=== PATIENT | male | born 1950 | race Caucasian/White ===

== ENCOUNTER 2017-12-21 14:04 | Inpatient (IN) | payer MEDICARE, MEDICAID ==
[~2017-12-21] VITALS: Ht 180.3 cm; Wt 146.0 kg
[~2017-12-21 14:04] MED LIST: ALBU18HF2 INH; CYCL-1 PO; DABI150C PO; DILT180C66 PO; DILT180C87 PO; FLUT12AE5 INH; LEVO500T89 PO; LIDO700A47 TP; METO50TA16 PO; OMEP20CA10 PO; PRED20TA PO; ROFL500T7 PO; TRAZ150T78 PO; UMEC62.5 INH
[2017-12-21] MEDS ORDERED: aspirin 81mg tab.chew PO ONE (14:10)
[2017-12-21] MEDS ORDERED: ipratropium/albuterol 3ml nebule NEB ONE (14:15)
[2017-12-21] MEDS ORDERED: furosemide 10 MG/1 ML 10ml inj IV ONE (14:15)
[2017-12-21] MEDS ORDERED: methylPREDNISolone sod succ 125mg/2ml vial IV ONE (14:15)
[2017-12-21] MEDS ORDERED: furosemide 40mg/4ml inj IV ONE (14:20)
[2017-12-21 14:34] LABS: HEMATOCRIT 32.5 % (42.0-52.0); HEMOGLOBIN 10.5 g/dl (14.0-17.9); MEAN CORPUSCULAR HEMOGLOBIN 25.1 PG (27.0-31.0); MEAN CORPUSCULAR HGB CONC 32.4 % (33.0-36.5); MEAN CORPUSCULAR VOLUME 77.5 FL (78-98); PLATELET COUNT 294 X10'3 (140-440); RED CELL DISTRIBUTION WIDTH 17.1 % (11.5-14.5); WHITE BLOOD COUNT 11.3 X10'3 (4.5-11.0)
[2017-12-21 14:35] LABS: BASOPHILS # (AUTO) 0.1 X10'3 (0-0.2); BASOPHILS % (AUTO) 1 % (0-1); EOSINOPHILS # (AUTO) 0.2 X10'3 (0-0.9); EOSINOPHILS % (AUTO) 1.5 % (0-6); LYMPHOCYTES # (AUTO) 2.2 X10'3 (1.1-4.8); LYMPHOCYTES % (AUTO) 19.4 % (21-51); MONOCYTES # (AUTO) 0.9 X10'3 (0-0.9); MONOCYTES % (AUTO) 7.6 % (2-12); NEUTROPHILS # (AUTO) 7.9 X10'3 (1.8-7.7); NEUTROPHILS % (AUTO) 70.5 % (42-75); PARTIAL THROMBOPLASTIN TIME 35 SECONDS (22-32); PROTHROMBIN TIME 10.7 SECONDS (9.0-12.0)
[2017-12-21 14:45] LABS: ALANINE AMINOTRANSFERASE 33 U/L (12-78); ALBUMIN 3.3 G/DL (3.4-5.0); ALBUMIN/GLOBULIN RATIO 0.9 (1.1-1.5); ALKALINE PHOSPHATASE 66 IU/L (46-116); ANION GAP 13 (8-16); ASPARTATE AMINO TRANSFERASE 26 U/L (10-37); BILIRUBIN,TOTAL 0.4 MG/DL (0.1-1.0); BLOOD UREA NITROGEN 12 MG/DL (7-18); BUN/CREATININE RATIO 11.9 (5.4-32.0); CALCIUM 9.3 MG/DL (8.5-10.1); CHLORIDE 91 MMOL/L (99-107); CREATININE 1.01 MG/DL (0.60-1.10); GLUCOSE 81 MG/DL (70-104); MAGNESIUM 1.6 MG/DL (1.5-2.4); SODIUM 130 MMOL/L (135-145); TOTAL CARBON DIOXIDE 25.8 MMOL/L (24-32); TOTAL PROTEIN 6.8 G/DL (6.4-8.2); eGFR 74 ML/MIN
[2017-12-21] MEDS ORDERED: potassium Cl 20 mEq SR tablet PO STA (14:48)
[2017-12-21] MEDS ORDERED: levoFLOXACIN-Levaquin 750MG/D5 150 ML IV STA (15:00)
[2017-12-21] MEDS ORDERED: acetaminophen 325mg tablet PO PRN (15:20)
[2017-12-21] MEDS ORDERED: potassium Cl 40MEQ/NS 500ml 500 ML IV PRN ×2 (15:20)
[2017-12-21] MEDS ORDERED: bisacodyl 10mg suppository rectal RC PRN (15:20)
[2017-12-21] MEDS ORDERED: ondansetron/PF 4mg/2ml inj IV PRN (15:20)
[2017-12-21] MEDS ORDERED: potassium Cl 20 mEq SR tablet PO PRN ×2 (15:20)
[2017-12-21] MEDS ORDERED: magnesium Cl slow-release 64mg tablet PO PRN (15:20)
[2017-12-21] MEDS ORDERED: magnesium 4gm in 100ml NS 100 ML IV PRN (15:20)
[2017-12-21] MEDS ORDERED: mag hydrox/Alum hydrox/simeth 30ml oral suspension PO PRN (15:20)
[2017-12-21] MEDS ORDERED: magnesium hydroxide 30ml (MOM) UD suspension PO PRN (15:20)
[2017-12-21] MEDS ORDERED: magnesium 1gm/100ml D5W IVPB 100 ML IV PRN (15:20)
[2017-12-21] MEDS: furosemide 20 MG/2 ML vial IV SCH ×2 (16:03→19:10)
[2017-12-21] MEDS: CefTRIAXone/D5W-Rocephin 1gm 50 ML IV SCH (16:04)
[2017-12-21 16:53] VITALS: BP 156/99
[2017-12-21] MEDS ORDERED: POTA8TAB8 PO (17:03)
[2017-12-21] MEDS ORDERED: HYDR-4383 PO (17:03)
[2017-12-21] MEDS ORDERED: DABI150C PO (17:03)
[2017-12-21] MEDS ORDERED: FURO-149 PO (17:03)
[2017-12-21] MEDS ORDERED: PRED10TA23 PO (17:03)
[2017-12-21] MEDS ORDERED: FURO40TA4 PO (17:03)
[2017-12-21] MEDS ORDERED: ROFL500T7 PO (17:03)
[2017-12-21] MEDS ORDERED: HYDR25TA4 PO (17:03)
[2017-12-21] MEDS ORDERED: METO50TA17 PO (17:03)
[2017-12-21] MEDS ORDERED: LEVA15HF4 INH (17:03)
[2017-12-21] MEDS ORDERED: pneumococcal 23-VAL P-sac vacc 25 mcg/0.5ml vial IMVAC ONE (17:30)
[2017-12-21] MEDS: potassium Cl 20 mEq SR tablet PO SCH (17:44)
[2017-12-21] MEDS ORDERED: UMEC62.5 INH (17:57)
[2017-12-21] MEDS ORDERED: TRAM50TA2 PO (17:57)
[2017-12-21] MEDS ORDERED: TRAZ150T78 PO (17:57)
[2017-12-21] MEDS ORDERED: IBUP-1985 PO (17:57)
[2017-12-21 18:30] VITALS: BP 162/72
[2017-12-21] MEDS ORDERED: albuterol 2.5 MG/3 ML nebule NEB PRN (18:30)
[2017-12-21] MEDS: ipratropium/albuterol 3ml nebule NEB SCH ×2 (18:36→22:54)
[2017-12-21] MEDS: LORazepam 0.5 MG tablet PO PRN (18:38)
[2017-12-21] MEDS: HYDROcodone/acetaminophen 5mg/325mg tablet PO PRN ×2 (18:39→22:18)
[2017-12-21] MEDS: methylPREDNISolone sod succ 125mg/2ml vial IV SCH (19:09)
[2017-12-21] MEDS: dabigatran 150mg capsule PO SCH (19:09)
[2017-12-21] MEDS: metoprolol tartrate 50mg tablet PO SCH (19:10)
[2017-12-21] MEDS: docusate sod 100mg capsule PO SCH (19:11)
[2017-12-21 20:00] VITALS: BP 162/72
[2017-12-21] MEDS ORDERED: dabigatran 150mg capsule PO SCH (20:00)
[2017-12-21] MEDS: traZODone 150mg tablet PO SCH (21:28)
[2017-12-21] MEDS: guaiFENesin 200 MG/10 ML oral syrup UD cup PO PRN (21:31)
[2017-12-22] VITALS: BP 135/86
[2017-12-22] MEDS: LORazepam 0.5 MG tablet PO PRN ×4 (00:59→21:57)
[2017-12-22] MEDS: methylPREDNISolone sod succ 125mg/2ml vial IV SCH ×4 (01:34→19:20)
[2017-12-22] MEDS: ipratropium/albuterol 3ml nebule NEB SCH ×6 (03:33→23:00)
[2017-12-22] MEDS: HYDROcodone/acetaminophen 5mg/325mg tablet PO PRN ×3 (04:10→17:06)
[2017-12-22 06:53] LABS: BASOPHILS % (AUTO) 0 % (0-1); EOSINOPHILS # (AUTO) 0.1 X10'3 (0-0.9); EOSINOPHILS % (AUTO) 1.9 % (0-6); HEMATOCRIT 32.9 % (42.0-52.0); HEMOGLOBIN 10.3 g/dl (14.0-17.9); LYMPHOCYTES # (AUTO) 0.3 X10'3 (1.1-4.8); MEAN CORPUSCULAR HEMOGLOBIN 24.5 PG (27.0-31.0); MEAN CORPUSCULAR HGB CONC 31.3 % (33.0-36.5); MEAN CORPUSCULAR VOLUME 78.4 FL (78-98); MEAN PLATELET VOLUME 7.1 FL (7.4-10.4); MONOCYTES # (AUTO) 0.1 X10'3 (0-0.9); MONOCYTES % (AUTO) 1.1 % (2-12); NEUTROPHILS # (AUTO) 6.8 X10'3 (1.8-7.7); PLATELET COUNT 320 X10'3 (140-440); RED BLOOD COUNT 4.19 X10'6 (4.70-6.10); RED CELL DISTRIBUTION WIDTH 17.9 % (11.5-14.5); WHITE BLOOD COUNT 7.3 X10'3 (4.5-11.0)
[2017-12-22 07:03] LABS: ALBUMIN 3.3 G/DL (3.4-5.0); ANION GAP 11 (8-16); BLOOD UREA NITROGEN 20 MG/DL (7-18); BUN/CREATININE RATIO 14.8 (5.4-32.0); CALCIUM 8.8 MG/DL (8.5-10.1); CHLORIDE 91 MMOL/L (99-107); CREATININE 1.35 MG/DL (0.60-1.10); GLUCOSE 184 MG/DL (70-104); MAGNESIUM 1.7 MG/DL (1.5-2.4); POTASSIUM 3.5 MMOL/L (3.5-5.1); SODIUM 132 MMOL/L (135-145); TOTAL CARBON DIOXIDE 30.1 MMOL/L (24-32); eGFR 53 ML/MIN
[2017-12-22 08:00] VITALS: BP 158/99
[2017-12-22] MEDS: K and/or MAG REPLACEMENT MC SCH (08:00)
[2017-12-22] MEDS: docusate sod 100mg capsule PO SCH ×2 (08:00→19:19)
[2017-12-22] MEDS: pantoprazole 40mg Tablet.DR PO SCH (08:32)
[2017-12-22] MEDS: potassium Cl 20 mEq SR tablet PO SCH ×2 (08:32→17:05)
[2017-12-22] MEDS: metoprolol tartrate 50mg tablet PO SCH ×2 (08:33→19:25)
[2017-12-22] MEDS: dabigatran 150mg capsule PO SCH ×2 (08:34→19:20)
[2017-12-22] MEDS: CefTRIAXone/D5W-Rocephin 1gm 50 ML IV SCH (08:34)
[2017-12-22] MEDS: furosemide 20 MG/2 ML vial IV SCH ×2 (08:34→19:21)
[2017-12-22 11:00] VITALS: BP 140/92
[2017-12-22] MEDS ORDERED: diazepam 5mg tablet PO ONE (12:25)
[2017-12-22] MEDS ORDERED: thiamine inj. 100 MG in normal saline 100ml IV soln 100 ML IV ONE (13:55)
[2017-12-22] MEDS ORDERED: haloperidol lactate 5mg/ml inj IM PRN (13:55)
[2017-12-22] MEDS ORDERED: haloperidol 5mg tablet PO PRN (13:55)
[2017-12-22] MEDS ORDERED: folic acid inj. 2 MG, thiamine inj. 100 MG, MVI, adult No.4 with vit. K 10 ML in dextro... IV SCH ×4 (15:00)
[2017-12-22] MEDS: diltiazem SR 60mg capsule (twice daily) PO SCH ×2 (15:36→19:26)
[2017-12-22] MEDS: guaiFENesin 200 MG/10 ML oral syrup UD cup PO PRN (19:17)
[2017-12-22 19:23] VITALS: BP 139/75
[2017-12-22 20:00] VITALS: BP 120/73
[2017-12-22] MEDS: traZODone 150mg tablet PO SCH (21:54)
[2017-12-23] VITALS: BP 138/76
[2017-12-23] MEDS: methylPREDNISolone sod succ 125mg/2ml vial IV SCH ×4 (01:33→19:37)
[2017-12-23] MEDS: HYDROcodone/acetaminophen 5mg/325mg tablet PO PRN ×3 (01:34→19:33)
[2017-12-23] MEDS: benzonatate 100mg capsule PO PRN ×2 (01:35→09:34)
[2017-12-23] MEDS: LORazepam 2 mg/ml vial IV PRN ×2 (01:36→05:27)
[2017-12-23] MEDS: ipratropium/albuterol 3ml nebule NEB SCH ×6 (03:00→23:05)
[2017-12-23] MEDS: LORazepam 0.5 MG tablet PO PRN ×5 (04:02→23:41)
[2017-12-23 05:21] LABS: BASOPHILS % (AUTO) 0 % (0-1); EOSINOPHILS # (AUTO) 0.2 X10'3 (0-0.9); EOSINOPHILS % (AUTO) 1.1 % (0-6); HEMATOCRIT 34.2 % (42.0-52.0); HEMOGLOBIN 10.8 g/dl (14.0-17.9); LYMPHOCYTES # (AUTO) 0.4 X10'3 (1.1-4.8); LYMPHOCYTES % (AUTO) 2.6 % (21-51); MEAN CORPUSCULAR HEMOGLOBIN 24.5 PG (27.0-31.0); MEAN CORPUSCULAR HGB CONC 31.5 % (33.0-36.5); MEAN CORPUSCULAR VOLUME 77.8 FL (78-98); MEAN PLATELET VOLUME 6.9 FL (7.4-10.4); MONOCYTES # (AUTO) 0.5 X10'3 (0-0.9); MONOCYTES % (AUTO) 3.6 % (2-12); NEUTROPHILS # (AUTO) 12.6 X10'3 (1.8-7.7); NEUTROPHILS % (AUTO) 92.7 % (42-75); PLATELET COUNT 358 X10'3 (140-440); RED CELL DISTRIBUTION WIDTH 18.4 % (11.5-14.5); WHITE BLOOD COUNT 13.6 X10'3 (4.5-11.0)
[2017-12-23 05:26] LABS: INR 1.1 INR; PROTHROMBIN TIME 11.4 SECONDS (9.0-12.0)
[2017-12-23 05:33] LABS: ALBUMIN 3.6 G/DL (3.4-5.0); AMYLASE 41 U/L (25-115); ANION GAP 10 (8-16); BLOOD UREA NITROGEN 33 MG/DL (7-18); BUN/CREATININE RATIO 22.9 (5.4-32.0); CALCIUM 9.8 MG/DL (8.5-10.1); CHLORIDE 95 MMOL/L (99-107); CREATININE 1.44 MG/DL (0.60-1.10); GLUCOSE 144 MG/DL (70-104); LIPASE 97 U/L (73-393); MAGNESIUM 1.9 MG/DL (1.5-2.4); PHOSPHORUS 4.4 MG/DL (2.3-4.5); POTASSIUM 4.4 MMOL/L (3.5-5.1); SODIUM 134 MMOL/L (135-145); eGFR 49 ML/MIN
[2017-12-23 06:09] LABS: ANISOCYTOSIS 2+; MICROCYTOSIS 1+; PLATELET ESTIMATE NORMAL
[2017-12-23 06:10] LABS: POLYCHROMASIA FEW
[2017-12-23 07:02] VITALS: BP 118/87
[2017-12-23] MEDS: K and/or MAG REPLACEMENT MC SCH (08:00)
[2017-12-23] MEDS: metoprolol tartrate 50mg tablet PO SCH ×2 (09:12→19:31)
[2017-12-23] MEDS: multivitamins, therapeutics tablet PO SCH (09:12)
[2017-12-23] MEDS: thiamine 100mg tablet PO SCH (09:12)
[2017-12-23] MEDS: potassium Cl 20 mEq SR tablet PO SCH ×2 (09:12→19:31)
[2017-12-23] MEDS: pantoprazole 40mg Tablet.DR PO SCH (09:13)
[2017-12-23] MEDS: diltiazem SR 60mg capsule (twice daily) PO SCH ×2 (09:13→20:00)
[2017-12-23] MEDS: docusate sod 100mg capsule PO SCH ×3 (09:13→19:40)
[2017-12-23] MEDS: dabigatran 150mg capsule PO SCH ×2 (09:13→19:31)
[2017-12-23] MEDS: folic acid 1mg tablet PO SCH (09:13)
[2017-12-23] MEDS: CefTRIAXone/D5W-Rocephin 1gm 50 ML IV SCH (09:14)
[2017-12-23 12:03] VITALS: BP 143/98
[2017-12-23] MEDS: guaiFENesin/codeine phos 10ml UD oral syrup PO PRN ×3 (14:40→23:41)
[2017-12-23 18:00] VITALS: BP 154/86
[2017-12-23] MEDS: lactobacillus rhamnosus 10,000 MMU CELLS/CAPSULE PO SCH (19:31)
[2017-12-23] MEDS: traZODone 150mg tablet PO SCH (21:21)
[2017-12-23 23:00] VITALS: BP 161/104
[2017-12-23] MEDS: diltiazem 30mg tablet PO SCH (23:28)
[2017-12-24] MEDS: HYDROcodone/acetaminophen 5mg/325mg tablet PO PRN ×4 (01:40→22:20)
[2017-12-24] MEDS: methylPREDNISolone sod succ 125mg/2ml vial IV SCH ×3 (01:40→19:21)
[2017-12-24] MEDS ORDERED: diltiazem 30mg tablet PO SCH (02:00)
[2017-12-24] MEDS: LORazepam 2 mg/ml vial IV PRN (02:50)
[2017-12-24] MEDS: ipratropium/albuterol 3ml nebule NEB SCH ×6 (03:18→23:05)
[2017-12-24 03:24] LABS: INR 1.1 INR; PROTHROMBIN TIME 11.3 SECONDS (9.0-12.0)
[2017-12-24 03:29] LABS: ALBUMIN 3.6 G/DL (3.4-5.0); AMYLASE 43 U/L (25-115); ANION GAP 8 (8-16); BLOOD UREA NITROGEN 44 MG/DL (7-18); BUN/CREATININE RATIO 28.6 (5.4-32.0); CALCIUM 9.5 MG/DL (8.5-10.1); CHLORIDE 98 MMOL/L (99-107); CREATININE 1.54 MG/DL (0.60-1.10); GLUCOSE 146 MG/DL (70-104); LIPASE 119 U/L (73-393); MAGNESIUM 2.1 MG/DL (1.5-2.4); PHOSPHORUS 4.4 MG/DL (2.3-4.5); POTASSIUM 5.3 MMOL/L (3.5-5.1); SODIUM 135 MMOL/L (135-145); TOTAL CARBON DIOXIDE 29.5 MMOL/L (24-32); eGFR 45 ML/MIN
[2017-12-24 03:44] LABS: LYMPHOCYTES % (AUTO) 2.4 % (21-51); MONOCYTES % (AUTO) 4.3 % (2-12); NEUTROPHILS # (AUTO) 11.3 X10'3 (1.8-7.7)
[2017-12-24 03:45] LABS: BASOPHILS % (AUTO) 0.1 % (0-1); EOSINOPHILS % (AUTO) 0 % (0-6); HEMATOCRIT 32.7 % (42.0-52.0); HEMOGLOBIN 10.3 g/dl (14.0-17.9); LYMPHOCYTES # (AUTO) 0.3 X10'3 (1.1-4.8); MEAN CORPUSCULAR HEMOGLOBIN 24.7 PG (27.0-31.0); MEAN CORPUSCULAR HGB CONC 31.5 % (33.0-36.5); MEAN CORPUSCULAR VOLUME 78.4 FL (78-98); MEAN PLATELET VOLUME 7.4 FL (7.4-10.4); NEUTROPHILS % (AUTO) 93.2 % (42-75); PLATELET COUNT 325 X10'3 (140-440); RED BLOOD COUNT 4.17 X10'6 (4.70-6.10); RED CELL DISTRIBUTION WIDTH 17.6 % (11.5-14.5); WHITE BLOOD COUNT 12.1 X10'3 (4.5-11.0)
[2017-12-24 03:46] LABS: MONOCYTES # (AUTO) 0.5 X10'3 (0-0.9)
[2017-12-24] MEDS: LORazepam 0.5 MG tablet PO PRN ×2 (05:15→09:11)
[2017-12-24] MEDS: guaiFENesin/codeine phos 10ml UD oral syrup PO PRN ×4 (05:15→17:49)
[2017-12-24] MEDS: folic acid 1mg tablet PO SCH (07:27)
[2017-12-24] MEDS: CefTRIAXone/D5W-Rocephin 1gm 50 ML IV SCH (07:27)
[2017-12-24] MEDS: multivitamins, therapeutics tablet PO SCH (07:27)
[2017-12-24] MEDS: pantoprazole 40mg Tablet.DR PO SCH (07:27)
[2017-12-24] MEDS: dabigatran 150mg capsule PO SCH ×2 (07:28→19:25)
[2017-12-24] MEDS: lactobacillus rhamnosus 10,000 MMU CELLS/CAPSULE PO SCH ×2 (07:28→19:24)
[2017-12-24] MEDS: thiamine 100mg tablet PO SCH (07:28)
[2017-12-24] MEDS: metoprolol tartrate 50mg tablet PO SCH ×2 (07:28→19:24)
[2017-12-24] MEDS: diltiazem 30mg tablet PO SCH ×3 (07:28→19:24)
[2017-12-24] MEDS: docusate sod 100mg capsule PO SCH ×2 (07:29→19:24)
[2017-12-24] MEDS: K and/or MAG REPLACEMENT MC SCH (07:29)
[2017-12-24 07:30] VITALS: BP 175/104
[2017-12-24] MEDS: furosemide 20 MG/2 ML vial IV SCH (07:33)
[2017-12-24] MEDS: potassium Cl 20 mEq SR tablet PO SCH ×2 (08:30→16:37)
[2017-12-24 11:35] VITALS: BP 161/87
[2017-12-24] MEDS: LORazepam 1 MG tablet PO PRN ×4 (13:27→23:11)
[2017-12-24] MEDS ORDERED: LORazepam 2 mg/ml vial IV PRN (13:55)
[2017-12-24] MEDS: benzonatate 100mg capsule PO SCH (16:59)
[2017-12-24 18:00] VITALS: BP 149/95
[2017-12-24] MEDS: doxycycline inj 100 MG in normal saline 100ml IV soln 100 ML IV SCH (19:22)
[2017-12-24] MEDS: traZODone 150mg tablet PO SCH (21:27)
[2017-12-25] VITALS: BP 165/107
[2017-12-25] MEDS: benzonatate 100mg capsule PO SCH ×3 (00:09→15:17)
[2017-12-25] MEDS: LORazepam 1 MG tablet PO PRN ×4 (02:00→22:58)
[2017-12-25] MEDS: diltiazem 30mg tablet PO SCH ×4 (02:00→20:46)
[2017-12-25] MEDS: ipratropium/albuterol 3ml nebule NEB SCH ×6 (02:39→22:47)
[2017-12-25 05:41] LABS: BASOPHILS % (AUTO) 0 % (0-1); EOSINOPHILS % (AUTO) 0 % (0-6); HEMATOCRIT 32.6 % (42.0-52.0); HEMOGLOBIN 10.6 g/dl (14.0-17.9); LYMPHOCYTES # (AUTO) 0.3 X10'3 (1.1-4.8); LYMPHOCYTES % (AUTO) 2.5 % (21-51); MEAN CORPUSCULAR HEMOGLOBIN 25.4 PG (27.0-31.0); MEAN CORPUSCULAR HGB CONC 32.6 % (33.0-36.5); MEAN CORPUSCULAR VOLUME 77.8 FL (78-98); MEAN PLATELET VOLUME 7.3 FL (7.4-10.4); MONOCYTES # (AUTO) 0.5 X10'3 (0-0.9); MONOCYTES % (AUTO) 4.6 % (2-12); NEUTROPHILS % (AUTO) 92.9 % (42-75); PLATELET COUNT 304 X10'3 (140-440); RED BLOOD COUNT 4.19 X10'6 (4.70-6.10); RED CELL DISTRIBUTION WIDTH 17.2 % (11.5-14.5); WHITE BLOOD COUNT 10.8 X10'3 (4.5-11.0)
[2017-12-25 05:45] LABS: INR 1.1 INR; PROTHROMBIN TIME 11.6 SECONDS (9.0-12.0)
[2017-12-25 05:55] LABS: ALBUMIN 3.6 G/DL (3.4-5.0); AMYLASE 43 U/L (25-115); ANION GAP 4 (8-16); BLOOD UREA NITROGEN 53 MG/DL (7-18); BUN/CREATININE RATIO 35.3 (5.4-32.0); CALCIUM 9.8 MG/DL (8.5-10.1); CHLORIDE 100 MMOL/L (99-107); GLUCOSE 133 MG/DL (70-104); LIPASE 105 U/L (73-393); MAGNESIUM 2.3 MG/DL (1.5-2.4); PHOSPHORUS 4.3 MG/DL (2.3-4.5); POTASSIUM 5.6 MMOL/L (3.5-5.1); SODIUM 137 MMOL/L (135-145); TOTAL CARBON DIOXIDE 33.3 MMOL/L (24-32); eGFR 47 ML/MIN
[2017-12-25] MEDS: metoprolol tartrate 50mg tablet PO SCH ×2 (07:29→20:47)
[2017-12-25] MEDS: dabigatran 150mg capsule PO SCH ×2 (07:29→20:47)
[2017-12-25] MEDS: lactobacillus rhamnosus 10,000 MMU CELLS/CAPSULE PO SCH ×2 (07:29→20:46)
[2017-12-25] MEDS: pantoprazole 40mg Tablet.DR PO SCH (07:29)
[2017-12-25] MEDS: multivitamins, therapeutics tablet PO SCH (07:29)
[2017-12-25] MEDS: folic acid 1mg tablet PO SCH (07:29)
[2017-12-25] MEDS: thiamine 100mg tablet PO SCH (07:29)
[2017-12-25] MEDS: furosemide 20 MG/2 ML vial IV SCH (07:31)
[2017-12-25] MEDS: methylPREDNISolone sod succ 125mg/2ml vial IV SCH ×2 (07:36→20:38)
[2017-12-25] MEDS: potassium Cl 20 mEq SR tablet PO SCH (07:42)
[2017-12-25] MEDS: docusate sod 100mg capsule PO SCH ×2 (07:42→20:46)
[2017-12-25] MEDS: K and/or MAG REPLACEMENT MC SCH (07:42)
[2017-12-25] MEDS ORDERED: sodium polystyrene sulfonate 15gm/60ml oral suspension PO ONE (07:45)
[2017-12-25 08:00] VITALS: BP 165/100
[2017-12-25] MEDS: doxycycline inj 100 MG in normal saline 100ml IV soln 100 ML IV SCH ×2 (08:56→20:38)
[2017-12-25] MEDS: HYDROcodone/acetaminophen 5mg/325mg tablet PO PRN ×3 (08:57→21:32)
[2017-12-25 11:30] VITALS: BP 150/104
[2017-12-25 14:12] LABS: ALBUMIN 3.8 G/DL (3.4-5.0); ANION GAP 7 (8-16); BLOOD UREA NITROGEN 55 MG/DL (7-18); BUN/CREATININE RATIO 29.4 (5.4-32.0); CALCIUM 9.9 MG/DL (8.5-10.1); CHLORIDE 100 MMOL/L (99-107); CREATININE 1.87 MG/DL (0.60-1.10); GLUCOSE 154 MG/DL (70-104); POTASSIUM 4.9 MMOL/L (3.5-5.1); SODIUM 139 MMOL/L (135-145); TOTAL CARBON DIOXIDE 31.8 MMOL/L (24-32); eGFR 36 ML/MIN
[2017-12-25] MEDS: guaiFENesin/codeine phos 10ml UD oral syrup PO PRN ×2 (15:18→21:28)
[2017-12-25] MEDS: montelukast 10mg tablet PO SCH (15:18)
[2017-12-25 18:00] VITALS: BP 156/111
[2017-12-25] MEDS: guaiFENesin ER 600mg tablet PO SCH (20:47)
[2017-12-25] MEDS: traZODone 150mg tablet PO SCH (20:47)
[2017-12-26] VITALS: BP 159/100
[2017-12-26] MEDS: benzonatate 100mg capsule PO SCH ×3 (00:42→16:38)
[2017-12-26] MEDS: diltiazem 30mg tablet PO SCH ×4 (01:57→19:12)
[2017-12-26] MEDS: guaiFENesin/codeine phos 10ml UD oral syrup PO PRN ×3 (01:57→21:29)
[2017-12-26] MEDS: ipratropium/albuterol 3ml nebule NEB SCH ×6 (03:49→23:29)
[2017-12-26 04:36] LABS: INR 1.2 INR
[2017-12-26 04:40] LABS: ALBUMIN 3.7 G/DL (3.4-5.0); AMYLASE 45 U/L (25-115); ANION GAP 4 (8-16); BASOPHILS % (AUTO) 0.2 % (0-1); BLOOD UREA NITROGEN 58 MG/DL (7-18); BUN/CREATININE RATIO 38.2 (5.4-32.0); CALCIUM 9.6 MG/DL (8.5-10.1); CHLORIDE 101 MMOL/L (99-107); CREATININE 1.52 MG/DL (0.60-1.10); EOSINOPHILS % (AUTO) 0 % (0-6); GLUCOSE 136 MG/DL (70-104); HEMATOCRIT 33.4 % (42.0-52.0); HEMOGLOBIN 10.8 g/dl (14.0-17.9); LIPASE 91 U/L (73-393); LYMPHOCYTES # (AUTO) 0.3 X10'3 (1.1-4.8); LYMPHOCYTES % (AUTO) 3.2 % (21-51); MAGNESIUM 2.3 MG/DL (1.5-2.4); MEAN CORPUSCULAR HEMOGLOBIN 25.4 PG (27.0-31.0); MEAN CORPUSCULAR HGB CONC 32.4 % (33.0-36.5); MEAN CORPUSCULAR VOLUME 78.3 FL (78-98); MEAN PLATELET VOLUME 7.5 FL (7.4-10.4); MONOCYTES # (AUTO) 0.5 X10'3 (0-0.9); MONOCYTES % (AUTO) 5.3 % (2-12); NEUTROPHILS # (AUTO) 8.6 X10'3 (1.8-7.7); NEUTROPHILS % (AUTO) 91.3 % (42-75); PHOSPHORUS 4.3 MG/DL (2.3-4.5); PLATELET COUNT 292 X10'3 (140-440); RED BLOOD COUNT 4.26 X10'6 (4.70-6.10); RED CELL DISTRIBUTION WIDTH 17.9 % (11.5-14.5); SODIUM 139 MMOL/L (135-145); TOTAL CARBON DIOXIDE 33.9 MMOL/L (24-32); WHITE BLOOD COUNT 9.4 X10'3 (4.5-11.0); eGFR 46 ML/MIN
[2017-12-26] MEDS: HYDROcodone/acetaminophen 5mg/325mg tablet PO PRN ×3 (04:51→21:42)
[2017-12-26 07:00] VITALS: BP 195/121
[2017-12-26] MEDS: pantoprazole 40mg Tablet.DR PO SCH (07:05)
[2017-12-26] MEDS: multivitamins, therapeutics tablet PO SCH (07:06)
[2017-12-26] MEDS: thiamine 100mg tablet PO SCH (07:07)
[2017-12-26] MEDS: montelukast 10mg tablet PO SCH (07:08)
[2017-12-26] MEDS: lactobacillus rhamnosus 10,000 MMU CELLS/CAPSULE PO SCH ×2 (07:08→19:12)
[2017-12-26] MEDS: metoprolol tartrate 50mg tablet PO SCH ×2 (07:08→19:12)
[2017-12-26] MEDS: methylPREDNISolone sod succ 125mg/2ml vial IV SCH ×2 (07:10→19:14)
[2017-12-26] MEDS: dabigatran 150mg capsule PO SCH ×2 (07:11→19:12)
[2017-12-26] MEDS: folic acid 1mg tablet PO SCH (07:14)
[2017-12-26] MEDS: furosemide 20 MG/2 ML vial IV SCH ×2 (07:14→19:15)
[2017-12-26] MEDS: guaiFENesin ER 600mg tablet PO SCH ×2 (07:14→19:12)
[2017-12-26] MEDS: docusate sod 100mg capsule PO SCH ×2 (07:17→20:00)
[2017-12-26] MEDS: LORazepam 1 MG tablet PO PRN (07:30)
[2017-12-26] MEDS: loratadine 10mg tablet PO SCH (07:30)
[2017-12-26] MEDS: doxycycline inj 100 MG in normal saline 100ml IV soln 100 ML IV SCH (07:34)
[2017-12-26] MEDS: K and/or MAG REPLACEMENT MC SCH (08:00)
[2017-12-26] MEDS ORDERED: furosemide 20 MG/2 ML vial IV ONE (08:55)
[2017-12-26 11:00] VITALS: BP 160/98
[2017-12-26] MEDS: DOXYCYCLINE 100MG CAPSULE PO SCH (16:39)
[2017-12-26] MEDS: hydrALAZINE 20mg/ml inj. IV PRN (16:39)
[2017-12-26 18:01] VITALS: BP 145/97
[2017-12-26 19:00] VITALS: BP 154/113
[2017-12-26] MEDS: traZODone 150mg tablet PO SCH (20:16)
[2017-12-26] MEDS: LORazepam 0.5 MG tablet PO PRN (20:19)
[2017-12-26 21:43] VITALS: BP 164/104
[2017-12-27] VITALS (7 sets, daily range): BP systolic 142–174; BP diastolic 81–166
[2017-12-27] MEDS: benzonatate 100mg capsule PO SCH ×4 (00:10→23:46)
[2017-12-27] MEDS: LORazepam 0.5 MG tablet PO PRN ×4 (00:32→23:46)
[2017-12-27] MEDS: diltiazem 30mg tablet PO SCH ×4 (02:21→19:38)
[2017-12-27 02:24] LABS: INR 1.2 INR; PROTHROMBIN TIME 12.5 SECONDS (9.0-12.0)
[2017-12-27 02:27] LABS: MAGNESIUM 2.1 MG/DL (1.5-2.4); PHOSPHORUS 5.3 MG/DL (2.3-4.5)
[2017-12-27] MEDS: ipratropium/albuterol 3ml nebule NEB SCH ×6 (03:17→22:46)
[2017-12-27] MEDS: pantoprazole 40mg Tablet.DR PO SCH (07:26)
[2017-12-27] MEDS: methylPREDNISolone sod succ 125mg/2ml vial IV SCH ×2 (07:26→19:38)
[2017-12-27] MEDS: hydrALAZINE 20mg/ml inj. IV PRN (07:26)
[2017-12-27] MEDS: thiamine 100mg tablet PO SCH (07:26)
[2017-12-27] MEDS: furosemide 20 MG/2 ML vial IV SCH ×2 (07:26→19:39)
[2017-12-27] MEDS: docusate sod 100mg capsule PO SCH ×2 (07:27→19:37)
[2017-12-27] MEDS: metoprolol tartrate 50mg tablet PO SCH ×2 (07:27→19:38)
[2017-12-27] MEDS: loratadine 10mg tablet PO SCH (07:27)
[2017-12-27] MEDS: folic acid 1mg tablet PO SCH (07:27)
[2017-12-27] MEDS: lactobacillus rhamnosus 10,000 MMU CELLS/CAPSULE PO SCH ×2 (07:27→19:38)
[2017-12-27] MEDS: montelukast 10mg tablet PO SCH (07:27)
[2017-12-27] MEDS: multivitamins, therapeutics tablet PO SCH (07:27)
[2017-12-27] MEDS: guaiFENesin ER 600mg tablet PO SCH ×2 (07:28→19:37)
[2017-12-27] MEDS: guaiFENesin/codeine phos 10ml UD oral syrup PO PRN ×2 (07:31→17:56)
[2017-12-27] MEDS: HYDROcodone/acetaminophen 5mg/325mg tablet PO PRN ×2 (07:32→19:37)
[2017-12-27] MEDS: DOXYCYCLINE 100MG CAPSULE PO SCH ×2 (07:32→17:53)
[2017-12-27] MEDS: dabigatran 150mg capsule PO SCH ×2 (07:33→19:43)
[2017-12-27] MEDS: K and/or MAG REPLACEMENT MC SCH (08:00)
[2017-12-27] MEDS ORDERED: hydrALAZINE 20mg/ml inj. IV ONE (10:25)
[2017-12-27] MEDS ORDERED: lactobacillus rhamnosus 10,000 MMU CELLS/CAPSULE PO SCH (20:00)
[2017-12-27] MEDS: traZODone 150mg tablet PO SCH (21:05)
[2017-12-28] VITALS (7 sets, daily range): BP systolic 142–176; BP diastolic 87–120
[2017-12-28] MEDS: diltiazem 30mg tablet PO SCH ×4 (02:33→20:07)
[2017-12-28] MEDS: ipratropium/albuterol 3ml nebule NEB SCH ×6 (03:00→23:11)
[2017-12-28] MEDS: LORazepam 0.5 MG tablet PO PRN ×2 (04:06→21:59)
[2017-12-28] MEDS: hydrALAZINE 20mg/ml inj. IV PRN ×2 (04:06→14:27)
[2017-12-28 06:36] LABS: MAGNESIUM 2.4 MG/DL (1.5-2.4)
[2017-12-28] MEDS: K and/or MAG REPLACEMENT MC SCH (08:00)
[2017-12-28] MEDS: montelukast 10mg tablet PO SCH (08:26)
[2017-12-28] MEDS: furosemide 20 MG/2 ML vial IV SCH ×2 (08:27→20:07)
[2017-12-28] MEDS: methylPREDNISolone sod succ 125mg/2ml vial IV SCH (08:27)
[2017-12-28] MEDS: DOXYCYCLINE 100MG CAPSULE PO SCH ×2 (08:27→16:49)
[2017-12-28] MEDS: thiamine 100mg tablet PO SCH (08:27)
[2017-12-28] MEDS: folic acid 1mg tablet PO SCH (08:28)
[2017-12-28] MEDS: multivitamins, therapeutics tablet PO SCH (08:28)
[2017-12-28] MEDS: benzonatate 100mg capsule PO SCH ×3 (08:28→23:55)
[2017-12-28] MEDS: pantoprazole 40mg Tablet.DR PO SCH (08:28)
[2017-12-28] MEDS: loratadine 10mg tablet PO SCH (08:28)
[2017-12-28] MEDS: docusate sod 100mg capsule PO SCH ×2 (08:28→20:00)
[2017-12-28] MEDS: guaiFENesin ER 600mg tablet PO SCH ×2 (08:28→20:08)
[2017-12-28] MEDS: lactobacillus rhamnosus 10,000 MMU CELLS/CAPSULE PO SCH ×2 (08:28→20:08)
[2017-12-28] MEDS: metoprolol tartrate 50mg tablet PO SCH ×2 (08:28→20:08)
[2017-12-28] MEDS: dabigatran 150mg capsule PO SCH ×2 (08:29→20:12)
[2017-12-28] MEDS: HYDROcodone/acetaminophen 5mg/325mg tablet PO PRN ×2 (08:35→14:22)
[2017-12-28 10:05] LABS: ABG HCO3 33.6 mmol/L (22.0-26.0); ABG OXYGEN SATURATION 92.5 % (95-98); ABG PCO2 (T) 52.1 mmHg (35.0-48.0); ABG PH (T) 7.428 (7.350-7.450); ABG PO2 (T) 67.1 mmHg (83-108); ALLEN'S TEST Positive; FCOHb 0.7 % (0.5-1.5); FLOW 1 L/min; FMetHb 0.1 % (0.3-1.12); FO2Hb 91.8 % (94-100); TOTAL HEMOGLOBIN 11.8 G/dl (14.0-18.0)
[2017-12-28] MEDS: guaiFENesin/codeine phos 10ml UD oral syrup PO PRN (14:22)
[2017-12-28] MEDS: traZODone 150mg tablet PO SCH (20:08)
[2017-12-29] VITALS: BP 143/83
[2017-12-29] MEDS: diltiazem 30mg tablet PO SCH ×2 (02:16→08:20)
[2017-12-29] MEDS: ipratropium/albuterol 3ml nebule NEB SCH ×3 (03:17→10:38)
[2017-12-29 07:00] VITALS: BP 161/80
[2017-12-29] MEDS: K and/or MAG REPLACEMENT MC SCH (08:00)
[2017-12-29] MEDS: docusate sod 100mg capsule PO SCH (08:00)
[2017-12-29] MEDS: folic acid 1mg tablet PO SCH (08:15)
[2017-12-29] MEDS: lactobacillus rhamnosus 10,000 MMU CELLS/CAPSULE PO SCH (08:15)
[2017-12-29] MEDS: multivitamins, therapeutics tablet PO SCH (08:16)
[2017-12-29] MEDS: thiamine 100mg tablet PO SCH (08:19)
[2017-12-29] MEDS: DOXYCYCLINE 100MG CAPSULE PO SCH (08:19)
[2017-12-29] MEDS: montelukast 10mg tablet PO SCH (08:20)
[2017-12-29] MEDS: pantoprazole 40mg Tablet.DR PO SCH (08:20)
[2017-12-29] MEDS: guaiFENesin ER 600mg tablet PO SCH (08:20)
[2017-12-29] MEDS: benzonatate 100mg capsule PO SCH (08:21)
[2017-12-29] MEDS: metoprolol tartrate 50mg tablet PO SCH (08:21)
[2017-12-29] MEDS: dabigatran 150mg capsule PO SCH (08:21)
[2017-12-29] MEDS: loratadine 10mg tablet PO SCH (08:21)
[2017-12-29] MEDS: furosemide 20 MG/2 ML vial IV SCH (08:21)
[2017-12-29] MEDS ORDERED: prednisone 10mg tablet PO SCH (08:30)
[2017-12-29] MEDS: HYDROcodone/acetaminophen 5mg/325mg tablet PO PRN (08:33)
[2017-12-29 11:00] VITALS: BP 154/78
== END 2017-12-29 13:34 | DRG 291 ==
LOC: ER 14:05 → ED HOLD 15:19 → EDBEDREQ 15:58 → SUR 3N 16:44
PROVIDERS: ADMIT Internal Medicine; ATTEND Family Medicine
PROC: 3E02340 Introduction of Influenza Vaccine into Muscle, Percutaneous Approach (ICD-10-PCS; 2017-12-21)
PROC: 5A09357 Assistance with Respiratory Ventilation, Less than 24 Consecutive Hours, Continuous Positive Airway Pressure (ICD-10-PCS; principal; 2017-12-28)
DX: I13.0 Hypertensive heart and chronic kidney disease with heart failure and stage 1 through stage 4 chronic kidney disease, or unspecified chronic kidney disease (principal); I50.23 Acute on chronic systolic (congestive) heart failure; J96.20 Acute and chronic respiratory failure, unspecified whether with hypoxia or hypercapnia; Z68.41 Body mass index [BMI] 40.0-44.9, adult; E87.1 Hypo-osmolality and hyponatremia; J44.0 Chronic obstructive pulmonary disease with (acute) lower respiratory infection; J44.1 Chronic obstructive pulmonary disease with (acute) exacerbation; N17.9 Acute kidney failure, unspecified; E87.6 Hypokalemia; D50.9 Iron deficiency anemia, unspecified; E66.01 Morbid (severe) obesity due to excess calories; E83.42 Hypomagnesemia; F10.10 Alcohol abuse, uncomplicated; I48.91 Unspecified atrial fibrillation; J20.9 Acute bronchitis, unspecified; K21.9 Gastro-esophageal reflux disease without esophagitis; N18.9 Chronic kidney disease, unspecified; Z99.81 Dependence on supplemental oxygen; Z79.899 Other long term (current) drug therapy; Z79.52 Long term (current) use of systemic steroids; Z80.42 Family history of malignant neoplasm of prostate; Z82.3 Family history of stroke; Z83.3 Family history of diabetes mellitus; Z84.89 Family history of other specified conditions; Z91.19 Patient's noncompliance with other medical treatment and regimen; Z23 Encounter for immunization
CPT/HCPCS: 36415; 36600; 71045; 80048; 80053; 82150; 82728; 82803; 83540; 83550; 83690; 83735; 83880; 84100; 84484; 85018; 85025; 85610; 85730; 87070; 90732; 93005; 93306; 94640; 94660; 94667; 94760; 96374; 96375; 97116; 97162; 97530; 99285; A6258; J0360; J0696; J1940; J1956; J2060; J2930; J3411; J3490; J7030; J7060; J7512

== ENCOUNTER 2018-02-03 18:34 | Emergency (ER) | payer MEDICARE, MEDICAID ==
[~2018-02-03] VITALS: Ht 180.3 cm; Wt 140.0 kg
[~2018-02-03 18:34] MED LIST changes: -ALBU18HF2 INH; -CYCL-1 PO; -DILT180C66 PO; -DILT180C87 PO; -FLUT12AE5 INH; +FURO-149 PO; +FURO40TA4 PO; +HYDR-4383 PO; +HYDR25TA4 PO; +IBUP-1985 PO; +LEVA15HF4 INH; -LEVO500T89 PO; -LIDO700A47 TP; -METO50TA16 PO; +METO50TA17 PO; -OMEP20CA10 PO; +POTA8TAB8 PO; +PRED10TA23 PO; -PRED20TA PO; +TRAM50TA2 PO
[2018-02-03] MEDS ORDERED: ipratropium/albuterol 3ml nebule NEB ONE (19:20)
[2018-02-03] MEDS ORDERED: furosemide 10 MG/1 ML 10ml inj IV ONE (19:20)
[2018-02-03] MEDS ORDERED: methylPREDNISolone sod succ 125mg/2ml vial IV ONE (19:20)
[2018-02-03] MEDS ORDERED: levoFLOXACIN 750MG TABLET PO ONE (19:20)
[2018-02-03 19:38] LABS: BASOPHILS # (AUTO) 0.1 X10'3 (0-0.2); BASOPHILS % (AUTO) 0.7 % (0-1); EOSINOPHILS # (AUTO) 0.2 X10'3 (0-0.9); EOSINOPHILS % (AUTO) 1.6 % (0-6); HEMATOCRIT 32.5 % (42.0-52.0); HEMOGLOBIN 10.1 g/dl (14.0-17.9); LYMPHOCYTES # (AUTO) 1.6 X10'3 (1.1-4.8); MEAN CORPUSCULAR HEMOGLOBIN 23.7 PG (27.0-31.0); MEAN CORPUSCULAR HGB CONC 31.2 % (33.0-36.5); MEAN CORPUSCULAR VOLUME 75.9 FL (78-98); MEAN PLATELET VOLUME 6.8 FL (7.4-10.4); MONOCYTES # (AUTO) 0.6 X10'3 (0-0.9); NEUTROPHILS # (AUTO) 7.7 X10'3 (1.8-7.7); NEUTROPHILS % (AUTO) 75.7 % (42-75); PLATELET COUNT 414 X10'3 (140-440); RED BLOOD COUNT 4.28 X10'6 (4.70-6.10); WHITE BLOOD COUNT 10.1 X10'3 (4.5-11.0)
[2018-02-03] MEDS ORDERED: HYDROcodone/acetaminophen 10/325mg tab PO ONE (19:50)
[2018-02-03 19:57] LABS: INR 1.2 INR; PARTIAL THROMBOPLASTIN TIME 38 SECONDS (22-32)
[2018-02-03 19:59] LABS: ALANINE AMINOTRANSFERASE 22 U/L (12-78); ALBUMIN/GLOBULIN RATIO 0.8 (1.1-1.5); ALKALINE PHOSPHATASE 66 IU/L (46-116); ANION GAP 9 (8-16); ASPARTATE AMINO TRANSFERASE 14 U/L (10-37); BILIRUBIN,TOTAL 0.4 MG/DL (0.1-1.0); BLOOD UREA NITROGEN 29 MG/DL (7-18); BUN/CREATININE RATIO 15.1 (5.4-32.0); CALCIUM 8.7 MG/DL (8.5-10.1); CHLORIDE 94 MMOL/L (99-107); CREATININE 1.92 MG/DL (0.60-1.10); GLUCOSE 155 MG/DL (70-104); SODIUM 137 MMOL/L (135-145); TOTAL PROTEIN 6.8 G/DL (6.4-8.2); eGFR 35 ML/MIN
[2018-02-03] MEDS ORDERED: POTA10TA19 PO (20:02)
[2018-02-03] MEDS ORDERED: HYDR25TA4 PO (20:02)
[2018-02-03] MEDS ORDERED: FURO40TA4 PO (20:02)
[2018-02-03 20:09] LABS: POTASSIUM 2.5 MMOL/L (3.5-5.1)
[2018-02-03] MEDS ORDERED: potassium Cl 20 mEq SR tablet PO STA (20:11)
[2018-02-03] MEDS ORDERED: potassium Cl 10 mEq/100mL bag IV ONE (20:15)
[2018-02-03] MEDS ORDERED: potassium 10mEq/100ml NS w/LIDOcaine (10mg/bag) IV SCH (20:15)
[2018-02-03] MEDS ORDERED: LORazepam 2 mg/ml vial IV ONE (20:20)
[2018-02-03 20:39] LABS: ANISOCYTOSIS 2+; HYPOCHROMASIA 1+; MICROCYTOSIS 1+; PLATELET ESTIMATE NORMAL
[2018-02-03 20:40] LABS: ELLIPTOCYTES 1+
[2018-02-03] MEDS ORDERED: LEVO500T2 PO (21:38)
[2018-02-03] MEDS ORDERED: PRED20TA PO (21:38)
[2018-02-03 23:26] VITALS: BP 130/88
== END 2018-02-04 00:06 | disposition home or self-care (01) ==
LOC: ER 18:34
DX: J44.1 Chronic obstructive pulmonary disease with (acute) exacerbation (principal); E87.6 Hypokalemia; I48.91 Unspecified atrial fibrillation; I11.0 Hypertensive heart disease with heart failure; I50.9 Heart failure, unspecified; K21.9 Gastro-esophageal reflux disease without esophagitis; Z98.890 Other specified postprocedural states; Z56.0 Unemployment, unspecified; Z88.5 Allergy status to narcotic agent; Z79.899 Other long term (current) drug therapy
CPT/HCPCS: 36415; 71045; 80053; 83605; 83880; 84132; 84484; 85025; 85610; 85730; 93005; 94640; 94760; 96365; 96375; 99285; J1940; J2060; J2930; J3480

== ENCOUNTER 2018-02-27 14:24 | Inpatient (IN) | payer MEDICARE, MEDICAID ==
[~2018-02-27] VITALS: Ht 180.3 cm; Wt 143.4 kg
[~2018-02-27 14:24] MED LIST changes: +0.9 % SODIUM CHLORIDE 10 ML VIAL ONE; -FURO-149 PO; +POTA10TA19 PO; -POTA8TAB8 PO; -ROFL500T7 PO; -TRAM50TA2 PO; +atropine 0.1 mg/ml 5ml syringe ONE; +etomidate 2mg/ml inj. ONE
[2018-02-27] MEDS ORDERED: albuterol 2.5 MG/3 ML nebule CONTNEB PRN (14:35)
[2018-02-27] MEDS ORDERED: methylPREDNISolone sod succ 125mg/2ml vial IV ONE (14:35)
[2018-02-27] MEDS ORDERED: ipratropium 0.5 MG/2.5ML nebule IH ONE (14:35)
[2018-02-27] MEDS ORDERED: LORazepam 2 mg/ml vial IV ONE (14:35)
[2018-02-27 14:43] LABS: BASOPHILS # (AUTO) 0.1 X10'3 (0-0.2); EOSINOPHILS # (AUTO) 0.2 X10'3 (0-0.9); EOSINOPHILS % (AUTO) 2.5 % (0-6); HEMATOCRIT 26.1 % (42.0-52.0); LYMPHOCYTES # (AUTO) 1.8 X10'3 (1.1-4.8); LYMPHOCYTES % (AUTO) 21.2 % (21-51); MEAN CORPUSCULAR HEMOGLOBIN 23.1 PG (27.0-31.0); MEAN CORPUSCULAR HGB CONC 30.6 % (33.0-36.5); MEAN CORPUSCULAR VOLUME 75.6 FL (78-98); MEAN PLATELET VOLUME 6.2 FL (7.4-10.4); MONOCYTES # (AUTO) 0.8 X10'3 (0-0.9); MONOCYTES % (AUTO) 9.2 % (2-12); NEUTROPHILS # (AUTO) 5.7 X10'3 (1.8-7.7); NEUTROPHILS % (AUTO) 66.1 % (42-75); PLATELET COUNT 309 X10'3 (140-440); RED BLOOD COUNT 3.46 X10'6 (4.70-6.10); RED CELL DISTRIBUTION WIDTH 20.2 % (11.5-14.5); WHITE BLOOD COUNT 8.6 X10'3 (4.5-11.0)
[2018-02-27 15:12] LABS: ANION GAP 8 (8-16); BILIRUBIN,TOTAL 0.2 MG/DL (0.1-1.0); BLOOD UREA NITROGEN 16 MG/DL (7-18); CALCIUM 8.8 MG/DL (8.5-10.1); CHLORIDE 104 MMOL/L (99-107); CREATININE 1.23 MG/DL (0.60-1.10); GLUCOSE 94 MG/DL (70-104); POTASSIUM 4.1 MMOL/L (3.5-5.1); SODIUM 140 MMOL/L (135-145); TOTAL CARBON DIOXIDE 27.7 MMOL/L (24-32); eGFR 59 ML/MIN
[2018-02-27 15:13] LABS: ALANINE AMINOTRANSFERASE 36 U/L (12-78); ALBUMIN 2.9 G/DL (3.4-5.0); ALBUMIN/GLOBULIN RATIO 0.9 (1.1-1.5); ALKALINE PHOSPHATASE 57 IU/L (46-116); ASPARTATE AMINO TRANSFERASE 21 U/L (10-37); TOTAL PROTEIN 6.1 G/DL (6.4-8.2)
[2018-02-27 15:48] LABS: INR 1.1 INR; PROTHROMBIN TIME 11.1 SECONDS (9.0-12.0)
[2018-02-27] MEDS ORDERED: furosemide 40mg/4ml inj IV ONE (16:10)
[2018-02-27] MEDS ORDERED: HYDROcodone/acetaminophen 10/325mg tab PO ONE (16:15)
[2018-02-27] MEDS ORDERED: OMEP20CA10 PO (16:25)
[2018-02-27] MEDS ORDERED: HYDR-4383 PO (16:25)
[2018-02-27] MEDS ORDERED: POTA20TA19 PO (16:25)
[2018-02-27] MEDS ORDERED: succinylcholine 20mg/ml inj IV ONE ×2 (16:40→16:55)
[2018-02-27] MEDS ORDERED: etomidate 2mg/ml inj. IV ONE (16:55)
[2018-02-27] MEDS ORDERED: propofol 1000mg/100ml bottle 100 ML IV ONE ×2 (16:56→17:32)
[2018-02-27] MEDS ORDERED: iohexol 350MG/ML 100ml bottle IV ONE (16:57)
[2018-02-27 17:20] LABS: ABG BASE EXCESS -6.8 mmol/L (-2.0-3.0); ABG HCO3 22.6 mmol/L (22.0-26.0); ABG OXYGEN SATURATION 99.4 % (95-98); ABG PH (T) 7.133 (7.350-7.450); ABG PO2 (T) 385.1 mmHg (83-108); ALLEN'S TEST Positive; FCOHb 0.9 % (0.5-1.5); FO2Hb 98.5 % (94-100); MINUTE VOLUME 11 L/min; PEEP 5 cm H2O; RESPIRATORY RATE 20 b/min; RESPIRATORY RATE (OBSERVED) 21 b/min; TIDAL VOLUME 400 mL; TOTAL HEMOGLOBIN 9.3 G/dl (14.0-18.0)
[2018-02-27] MEDS ORDERED: pantoprazole 40 MG vial IV ONE (17:26)
[2018-02-27] MEDS: K, MAG and/or Phos replacement - Verify level? MC SCH (17:30)
[2018-02-27] MEDS ORDERED: potassium Cl 20 mEq SR tablet PO PRN ×2 (17:30)
[2018-02-27] MEDS ORDERED: acetaminophen 325mg tablet PO PRN ×2 (17:30)
[2018-02-27] MEDS ORDERED: fentaNYL/PF 50MCG/1 ML 2ML syringe IV ONE (17:35)
[2018-02-27] MEDS ORDERED: MIDAZolam 5mg/ml 2ml vial IV ONE (17:35)
[2018-02-27] MEDS ORDERED: midazolam 100mg in NS 100ml 100 ML IV PRN (17:50)
[2018-02-27] MEDS ORDERED: FENTANYL-0.9 % NACL/PF 100 ML IV PRN (17:50)
[2018-02-27] MEDS: midazolam 100mg in NS 100ml 100 ML IV PRN (18:19)
[2018-02-27] MEDS: FENTANYL-0.9 % NACL/PF 100 ML IV PRN (18:20)
[2018-02-27] MEDS: ipratropium/albuterol 3ml nebule NEB SCH ×2 (19:00→23:08)
[2018-02-27] MEDS: dexmedetomidin/NS 400mcg/100ml 100 ML IV SCH (19:10)
[2018-02-27 21:30] VITALS: BP 130/89
[2018-02-27 22:00] VITALS: BP 127/84
[2018-02-27] MEDS: methylPREDNISolone sod succ/PF 40mg inj. IV SCH (22:51)
[2018-02-27] MEDS: furosemide 40mg/4ml inj IV SCH (22:51)
[2018-02-27 23:00] VITALS: BP 153/92
[2018-02-28] VITALS (27 sets, daily range): BP systolic 111–185; BP diastolic 78–110
[2018-02-28 02:36] LABS: ABG BASE EXCESS 4.9 mmol/L (-2.0-3.0); ABG HCO3 30.3 mmol/L (22.0-26.0); ABG OXYGEN SATURATION 98.4 % (95-98); ABG PCO2 (T) 49.3 mmHg (35.0-48.0); ABG PH (T) 7.405 (7.350-7.450); ABG PO2 (T) 134.8 mmHg (83-108); ALLEN'S TEST Positive; FCOHb 0.6 % (0.5-1.5); FMetHb 0.2 % (0.3-1.12); FO2Hb 97.6 % (94-100); MINUTE VOLUME 11 L/min; PATIENT TEMPERATURE 36.7; PEEP 5 cm H2O; RESPIRATORY RATE 20 b/min; RESPIRATORY RATE (OBSERVED) 21 b/min; TIDAL VOLUME 500 mL; TOTAL HEMOGLOBIN 8.7 G/dl (14.0-18.0)
[2018-02-28] MEDS: methylPREDNISolone sod succ/PF 40mg inj. IV SCH ×4 (02:43→20:05)
[2018-02-28] MEDS: ipratropium/albuterol 3ml nebule NEB SCH ×6 (02:54→22:45)
[2018-02-28] MEDS: midazolam 100mg in NS 100ml 100 ML IV PRN ×4 (02:58→19:26)
[2018-02-28 03:13] LABS: ALANINE AMINOTRANSFERASE 49 U/L (12-78); ALBUMIN 2.9 G/DL (3.4-5.0); ALBUMIN/GLOBULIN RATIO 0.9 (1.1-1.5); ALKALINE PHOSPHATASE 60 IU/L (46-116); ANION GAP 8 (8-16); ASPARTATE AMINO TRANSFERASE 39 U/L (10-37); BILIRUBIN,TOTAL 0.4 MG/DL (0.1-1.0); BLOOD UREA NITROGEN 17 MG/DL (7-18); CALCIUM 8.7 MG/DL (8.5-10.1); CHLORIDE 104 MMOL/L (99-107); CREATININE 1.21 MG/DL (0.60-1.10); GLUCOSE 164 MG/DL (70-104); POTASSIUM 3.9 MMOL/L (3.5-5.1); SODIUM 141 MMOL/L (135-145); eGFR 60 ML/MIN
[2018-02-28 03:16] LABS: MAGNESIUM 1.9 MG/DL (1.5-2.4); PHOSPHORUS 4.5 MG/DL (2.3-4.5)
[2018-02-28 03:31] LABS: BASOPHILS % (AUTO) 0 % (0-1); EOSINOPHILS # (AUTO) 0.1 X10'3 (0-0.9); EOSINOPHILS % (AUTO) 1.5 % (0-6); HEMATOCRIT 25.8 % (42.0-52.0); HEMOGLOBIN 7.8 g/dl (14.0-17.9); LYMPHOCYTES # (AUTO) 0.2 X10'3 (1.1-4.8); LYMPHOCYTES % (AUTO) 2.6 % (21-51); MEAN CORPUSCULAR HEMOGLOBIN 23.1 PG (27.0-31.0); MEAN CORPUSCULAR HGB CONC 30.4 % (33.0-36.5); MEAN CORPUSCULAR VOLUME 75.8 FL (78-98); MEAN PLATELET VOLUME 6.9 FL (7.4-10.4); MONOCYTES # (AUTO) 0.1 X10'3 (0-0.9); MONOCYTES % (AUTO) 1.6 % (2-12); NEUTROPHILS # (AUTO) 8.5 X10'3 (1.8-7.7); NEUTROPHILS % (AUTO) 94.3 % (42-75); PLATELET COUNT 260 X10'3 (140-440); RED CELL DISTRIBUTION WIDTH 20.4 % (11.5-14.5)
[2018-02-28] MEDS: K, MAG and/or Phos replacement - Verify level? MC SCH (06:51)
[2018-02-28 07:45] LABS: PLATELET ESTIMATE NORMAL
[2018-02-28 07:46] LABS: ANISOCYTOSIS 2+; HYPOCHROMASIA 1+; MICROCYTOSIS 1+; POIKILOCYTOSIS FEW; POLYCHROMASIA FEW; TARGET CELLS FEW
[2018-02-28] MEDS: dexmedetomidin/NS 400mcg/100ml 100 ML IV SCH ×3 (08:38→22:07)
[2018-02-28] MEDS: metoprolol tartrate 50mg tablet PO SCH ×2 (08:39→20:05)
[2018-02-28] MEDS: furosemide 40mg/4ml inj IV SCH ×2 (08:39→20:05)
[2018-02-28] MEDS: pantoprazole 40 MG vial IV SCH (08:39)
[2018-02-28] MEDS: enoxaparin 40mg/0.4ml syringe SQ SCH (08:40)
[2018-02-28] MEDS: FENTANYL-0.9 % NACL/PF 100 ML IV PRN ×2 (09:12→23:34)
[2018-02-28] MEDS: methylnaltrexone br 12mg/0.6ml inj***SubQ only SQ SCH (10:17)
[2018-02-28] MEDS: CefTRIAXone 2gm/D5W 50ml 50 ML IV SCH (10:18)
[2018-02-28 11:03] LABS: % IRON SATURATION 3 % (11-46); IRON 11 UG/DL (53-167); TOTAL IRON BINDING CAPACITY 397 UG/DL (259-388)
[2018-02-28] MEDS: levoFLOXACIN-Levaquin 750MG/D5 150 ML IV SCH (11:48)
[2018-02-28] MEDS: mineral oil/petrolatum ophthal oint EACHEYE SCH (20:41)
[2018-03-01] VITALS (24 sets, daily range): BP systolic 95–197; BP diastolic 76–123
[2018-03-01] MEDS: hydrALAZINE 20mg/ml inj. IV PRN ×2 (01:07→10:38)
[2018-03-01] MEDS: mineral oil/petrolatum ophthal oint EACHEYE SCH ×4 (02:45→19:47)
[2018-03-01] MEDS: dexmedetomidin/NS 400mcg/100ml 100 ML IV SCH ×5 (02:45→19:12)
[2018-03-01] MEDS: methylPREDNISolone sod succ/PF 40mg inj. IV SCH ×5 (02:47→19:46)
[2018-03-01] MEDS: ipratropium/albuterol 3ml nebule NEB SCH ×5 (03:29→20:53)
[2018-03-01 03:45] LABS: ABG BASE EXCESS 6.7 mmol/L (-2.0-3.0); ABG HCO3 29.9 mmol/L (22.0-26.0); ABG OXYGEN SATURATION 93.6 % (95-98); ABG PCO2 (T) 37.1 mmHg (35.0-48.0); ABG PH (T) 7.524 (7.350-7.450); ABG PO2 (T) 68.1 mmHg (83-108); ALLEN'S TEST Positive; FCOHb 0.6 % (0.5-1.5); FMetHb 0.3 % (0.3-1.12); FO2Hb 92.8 % (94-100); MINUTE VOLUME 15 L/min; PATIENT TEMPERATURE 36.9; PEEP 5 cm H2O; RESPIRATORY RATE 20 b/min; RESPIRATORY RATE (OBSERVED) 20 b/min; TIDAL VOLUME 600 mL; TOTAL HEMOGLOBIN 10.4 G/dl (14.0-18.0)
[2018-03-01 03:48] LABS: ALANINE AMINOTRANSFERASE 56 U/L (12-78); ALBUMIN 2.9 G/DL (3.4-5.0); ALBUMIN/GLOBULIN RATIO 0.8 (1.1-1.5); ALKALINE PHOSPHATASE 54 IU/L (46-116); ANION GAP 9 (8-16); ASPARTATE AMINO TRANSFERASE 95 U/L (10-37); BILIRUBIN,TOTAL 0.3 MG/DL (0.1-1.0); BLOOD UREA NITROGEN 24 MG/DL (7-18); BUN/CREATININE RATIO 23.8 (5.4-32.0); CALCIUM 9.3 MG/DL (8.5-10.1); CHLORIDE 102 MMOL/L (99-107); CREATININE 1.01 MG/DL (0.60-1.10); GLUCOSE 154 MG/DL (70-104); PHOSPHORUS 3.3 MG/DL (2.3-4.5); POTASSIUM 3.3 MMOL/L (3.5-5.1); SODIUM 142 MMOL/L (135-145); TOTAL CARBON DIOXIDE 31.3 MMOL/L (24-32); TOTAL PROTEIN 6.4 G/DL (6.4-8.2); eGFR 74 ML/MIN
[2018-03-01 03:57] LABS: BASOPHILS % (AUTO) 0 % (0-1); EOSINOPHILS # (AUTO) 0.2 X10'3 (0-0.9); EOSINOPHILS % (AUTO) 1.4 % (0-6); HEMATOCRIT 31.3 % (42.0-52.0); HEMOGLOBIN 9.7 g/dl (14.0-17.9); LYMPHOCYTES # (AUTO) 0.4 X10'3 (1.1-4.8); LYMPHOCYTES % (AUTO) 3.3 % (21-51); MEAN CORPUSCULAR HEMOGLOBIN 23.8 PG (27.0-31.0); MEAN CORPUSCULAR HGB CONC 30.9 % (33.0-36.5); MEAN PLATELET VOLUME 7.2 FL (7.4-10.4); MONOCYTES # (AUTO) 0.6 X10'3 (0-0.9); MONOCYTES % (AUTO) 5.1 % (2-12); NEUTROPHILS # (AUTO) 10.2 X10'3 (1.8-7.7); NEUTROPHILS % (AUTO) 90.2 % (42-75); PLATELET COUNT 270 X10'3 (140-440); RED BLOOD COUNT 4.06 X10'6 (4.70-6.10); RED CELL DISTRIBUTION WIDTH 21.5 % (11.5-14.5); WHITE BLOOD COUNT 11.4 X10'3 (4.5-11.0)
[2018-03-01] MEDS: midazolam 100mg in NS 100ml 100 ML IV PRN (05:11)
[2018-03-01 05:43] LABS: ANISOCYTOSIS 3+; MICROCYTOSIS 1+; PLATELET ESTIMATE NORMAL; POLYCHROMASIA 1+
[2018-03-01 05:44] LABS: TARGET CELLS FEW
[2018-03-01] MEDS ORDERED: potassium Cl oral solution 20 MEQ/15 ML PO PRN (07:42)
[2018-03-01] MEDS: K, MAG and/or Phos replacement - Verify level? MC SCH (08:00)
[2018-03-01] MEDS: CefTRIAXone 2gm/D5W 50ml 50 ML IV SCH (08:49)
[2018-03-01] MEDS: levoFLOXACIN-Levaquin 750MG/D5 150 ML IV SCH (08:49)
[2018-03-01] MEDS: furosemide 40mg/4ml inj IV SCH ×2 (08:49→19:46)
[2018-03-01] MEDS: pantoprazole 40 MG vial IV SCH (08:49)
[2018-03-01] MEDS: potassium Cl oral solution 20 MEQ/15 ML PO PRN ×2 (08:50→14:08)
[2018-03-01] MEDS: metoprolol tartrate 50mg tablet PO SCH ×2 (08:50→19:45)
[2018-03-01] MEDS: enoxaparin 40mg/0.4ml syringe SQ SCH (08:51)
[2018-03-01] MEDS ORDERED: racepinephrine 11.25mg/0.5ml nebule NEB PRN (10:55)
[2018-03-01 15:20] LABS: ABG BASE EXCESS 7.4 mmol/L (-2.0-3.0); ABG HCO3 31.6 mmol/L (22.0-26.0); ABG OXYGEN SATURATION 96.1 % (95-98); ABG PCO2 (T) 43.2 mmHg (35.0-48.0); ABG PH (T) 7.482 (7.350-7.450); ALLEN'S TEST Positive; FCOHb 0.9 % (0.5-1.5); FLOW 2 L/min; FMetHb 0.3 % (0.3-1.12); FO2Hb 94.9 % (94-100); PATIENT TEMPERATURE 37.1; TOTAL HEMOGLOBIN 10.8 G/dl (14.0-18.0)
[2018-03-01] MEDS: ipratropium/albuterol 3ml nebule NEB PRN ×2 (17:28→23:18)
[2018-03-01] MEDS ORDERED: lactobacillus rhamnosus 10,000 MMU CELLS/CAPSULE PO SCH (20:00)
[2018-03-02] VITALS (23 sets, daily range): BP systolic 98–174; BP diastolic 59–101
[2018-03-02] MEDS: hydrALAZINE 20mg/ml inj. IV PRN (00:48)
[2018-03-02] MEDS ORDERED: diltiazem 5mg/ml 5ml inj. IV ONE ×2 (01:05→06:20)
[2018-03-02] MEDS: ondansetron/PF 4mg/2ml inj IV PRN (01:32)
[2018-03-02] MEDS: mineral oil/petrolatum ophthal oint EACHEYE SCH ×2 (02:00→07:00)
[2018-03-02] MEDS: ipratropium/albuterol 3ml nebule NEB SCH ×4 (02:56→20:36)
[2018-03-02] MEDS ORDERED: LORazepam 2 mg/ml vial IV ONE (03:45)
[2018-03-02 05:57] LABS: BASOPHILS % (AUTO) 0.1 % (0-1); EOSINOPHILS # (AUTO) 0.1 X10'3 (0-0.9); HEMATOCRIT 33.5 % (42.0-52.0); HEMOGLOBIN 10.3 g/dl (14.0-17.9); LYMPHOCYTES # (AUTO) 0.4 X10'3 (1.1-4.8); LYMPHOCYTES % (AUTO) 3.5 % (21-51); MEAN CORPUSCULAR HEMOGLOBIN 23.7 PG (27.0-31.0); MEAN CORPUSCULAR HGB CONC 30.8 % (33.0-36.5); MEAN CORPUSCULAR VOLUME 76.8 FL (78-98); MEAN PLATELET VOLUME 7.3 FL (7.4-10.4); MONOCYTES # (AUTO) 0.9 X10'3 (0-0.9); MONOCYTES % (AUTO) 7.7 % (2-12); NEUTROPHILS # (AUTO) 10.6 X10'3 (1.8-7.7); NEUTROPHILS % (AUTO) 87.7 % (42-75); PLATELET COUNT 271 X10'3 (140-440); RED BLOOD COUNT 4.36 X10'6 (4.70-6.10); RED CELL DISTRIBUTION WIDTH 21.7 % (11.5-14.5); WHITE BLOOD COUNT 12.1 X10'3 (4.5-11.0)
[2018-03-02 06:18] LABS: ALANINE AMINOTRANSFERASE 46 U/L (12-78); ALBUMIN 2.9 G/DL (3.4-5.0); ALBUMIN/GLOBULIN RATIO 0.9 (1.1-1.5); ALKALINE PHOSPHATASE 58 IU/L (46-116); ANION GAP 8 (8-16); ASPARTATE AMINO TRANSFERASE 53 U/L (10-37); BILIRUBIN,TOTAL 0.3 MG/DL (0.1-1.0); BLOOD UREA NITROGEN 39 MG/DL (7-18); BUN/CREATININE RATIO 32.5 (5.4-32.0); CALCIUM 9.8 MG/DL (8.5-10.1); CHLORIDE 105 MMOL/L (99-107); GLUCOSE 120 MG/DL (70-104); MAGNESIUM 2.3 MG/DL (1.5-2.4); PHOSPHORUS 4.6 MG/DL (2.3-4.5); POTASSIUM 3.9 MMOL/L (3.5-5.1); SODIUM 145 MMOL/L (135-145); TOTAL CARBON DIOXIDE 31.9 MMOL/L (24-32); TOTAL PROTEIN 6.3 G/DL (6.4-8.2); eGFR 61 ML/MIN
[2018-03-02 06:31] LABS: PLATELET ESTIMATE NORMAL
[2018-03-02 06:32] LABS: ANISOCYTOSIS 3+; HYPOCHROMASIA 1+
[2018-03-02] MEDS: K, MAG and/or Phos replacement - Verify level? MC SCH (07:01)
[2018-03-02] MEDS: methylPREDNISolone sod succ/PF 40mg inj. IV SCH (07:23)
[2018-03-02] MEDS: pantoprazole 40 MG vial IV SCH (07:23)
[2018-03-02] MEDS: methylnaltrexone br 12mg/0.6ml inj***SubQ only SQ SCH (07:23)
[2018-03-02] MEDS: furosemide 40mg/4ml inj IV SCH (07:23)
[2018-03-02] MEDS: enoxaparin 40mg/0.4ml syringe SQ SCH (07:23)
[2018-03-02] MEDS: levoFLOXACIN-Levaquin 750MG/D5 150 ML IV SCH (07:24)
[2018-03-02] MEDS: metoprolol tartrate 50mg tablet PO SCH ×2 (07:24→19:58)
[2018-03-02] MEDS: CefTRIAXone 2gm/D5W 50ml 50 ML IV SCH (08:59)
[2018-03-02] MEDS ORDERED: non-formulary drug (Levalbuterol Tartrate (Xopenex Hfa) 2 PUFFS) INH PRN (09:50)
[2018-03-02] MEDS ORDERED: amiodarone 150mg/dext, iso-os 100 ML IV ONE (10:40)
[2018-03-02] MEDS: amiodarone/D5 360MG/200ML BAG 200 ML IV SCH ×2 (11:38→17:08)
[2018-03-02] MEDS: HYDROcodone/acetaminophen 5mg/325mg tablet PO PRN ×3 (13:09→19:58)
[2018-03-02] MEDS ORDERED: digoxin 250mcg/ml 2ml ampule IV ONE (16:50)
[2018-03-02] MEDS: potassium Cl 20 mEq SR tablet PO SCH (19:57)
[2018-03-02] MEDS: dabigatran 150mg capsule PO SCH (19:57)
[2018-03-02] MEDS: furosemide 40mg tablet PO SCH (19:57)
[2018-03-02] MEDS: traZODone 150mg tablet PO SCH (19:57)
[2018-03-02] MEDS ORDERED: metoprolol tartrate 50mg tablet PO SCH (20:00)
[2018-03-03] VITALS (24 sets, daily range): BP systolic 116–173; BP diastolic 76–112
[2018-03-03] MEDS: HYDROcodone/acetaminophen 5mg/325mg tablet PO PRN ×6 (00:14→20:48)
[2018-03-03] MEDS: ondansetron/PF 4mg/2ml inj IV PRN ×2 (00:14→08:07)
[2018-03-03] MEDS: ipratropium/albuterol 3ml nebule NEB SCH ×4 (02:41→21:00)
[2018-03-03] MEDS: amiodarone/D5 360MG/200ML BAG 200 ML IV SCH ×3 (04:19→10:56)
[2018-03-03 05:24] LABS: ALANINE AMINOTRANSFERASE 46 U/L (12-78); ALBUMIN 2.9 G/DL (3.4-5.0); ALBUMIN/GLOBULIN RATIO 0.8 (1.1-1.5); ALKALINE PHOSPHATASE 58 IU/L (46-116); ANION GAP 8 (8-16); ASPARTATE AMINO TRANSFERASE 50 U/L (10-37); BILIRUBIN,TOTAL 0.3 MG/DL (0.1-1.0); BLOOD UREA NITROGEN 56 MG/DL (7-18); BUN/CREATININE RATIO 41.2 (5.4-32.0); CALCIUM 9.8 MG/DL (8.5-10.1); CHLORIDE 105 MMOL/L (99-107); CREATININE 1.36 MG/DL (0.60-1.10); GLUCOSE 108 MG/DL (70-104); MAGNESIUM 2.5 MG/DL (1.5-2.4); PHOSPHORUS 4.8 MG/DL (2.3-4.5); POTASSIUM 3.6 MMOL/L (3.5-5.1); SODIUM 146 MMOL/L (135-145); TOTAL CARBON DIOXIDE 32.9 MMOL/L (24-32); TOTAL PROTEIN 6.4 G/DL (6.4-8.2); eGFR 52 ML/MIN
[2018-03-03 05:29] LABS: HEMATOCRIT 32.5 % (42.0-52.0); HEMOGLOBIN 10.5 g/dl (14.0-17.9); MEAN CORPUSCULAR HEMOGLOBIN 24.7 PG (27.0-31.0); MEAN CORPUSCULAR HGB CONC 32.4 % (33.0-36.5); MEAN CORPUSCULAR VOLUME 76.4 FL (78-98); RED BLOOD COUNT 4.26 X10'6 (4.70-6.10); WHITE BLOOD COUNT 12.3 X10'3 (4.5-11.0)
[2018-03-03 05:30] LABS: BASOPHILS # (AUTO) 0.1 X10'3 (0-0.2); BASOPHILS % (AUTO) 0.6 % (0-1); EOSINOPHILS % (AUTO) 0 % (0-6); LYMPHOCYTES # (AUTO) 1.2 X10'3 (1.1-4.8); LYMPHOCYTES % (AUTO) 9.4 % (21-51); MEAN PLATELET VOLUME 7.4 FL (7.4-10.4); MONOCYTES # (AUTO) 1.1 X10'3 (0-0.9); MONOCYTES % (AUTO) 8.9 % (2-12); NEUTROPHILS # (AUTO) 9.9 X10'3 (1.8-7.7); NEUTROPHILS % (AUTO) 81.1 % (42-75); PLATELET COUNT 268 X10'3 (140-440)
[2018-03-03] MEDS: K, MAG and/or Phos replacement - Verify level? MC SCH (07:53)
[2018-03-03] MEDS: potassium Cl 20 mEq SR tablet PO SCH ×3 (08:00→20:46)
[2018-03-03] MEDS ORDERED: non-formulary drug (Omeprazole 1 CAP) PO SCH (08:00)
[2018-03-03] MEDS ORDERED: non-formulary drug (Umeclidinium Bromide (Incruse Ellipta) 1 PUFF) INH SCH (08:00)
[2018-03-03] MEDS: predniSONE 20 mg tablet PO SCH (08:06)
[2018-03-03] MEDS: furosemide 40mg tablet PO SCH ×2 (08:06→20:47)
[2018-03-03] MEDS: pantoprazole 40mg Tablet.DR PO SCH (08:06)
[2018-03-03] MEDS: CefTRIAXone 2gm/D5W 50ml 50 ML IV SCH (08:06)
[2018-03-03] MEDS: dabigatran 150mg capsule PO SCH ×2 (08:06→20:47)
[2018-03-03] MEDS: metoprolol tartrate 50mg tablet PO SCH ×2 (08:07→20:47)
[2018-03-03] MEDS: digoxin 250mcg/ml 2ml ampule IV SCH ×3 (10:51→15:20)
[2018-03-03] MEDS: amiodarone 200mg tablet PO SCH ×2 (15:20→20:48)
[2018-03-03] MEDS: lactobacillus rhamnosus 10,000 MMU CELLS/CAPSULE PO SCH (20:46)
[2018-03-03] MEDS: traZODone 150mg tablet PO SCH (20:47)
[2018-03-04] VITALS (24 sets, daily range): BP systolic 15–178; BP diastolic 82–117
[2018-03-04] MEDS: HYDROcodone/acetaminophen 5mg/325mg tablet PO PRN ×3 (00:46→09:01)
[2018-03-04] MEDS: ipratropium/albuterol 3ml nebule NEB SCH ×4 (03:00→20:14)
[2018-03-04 07:21] LABS: BASOPHILS # (AUTO) 0.1 X10'3 (0-0.2); BASOPHILS % (AUTO) 0.9 % (0-1); EOSINOPHILS # (AUTO) 0.1 X10'3 (0-0.9); EOSINOPHILS % (AUTO) 0.8 % (0-6); HEMATOCRIT 32.5 % (42.0-52.0); LYMPHOCYTES % (AUTO) 9.7 % (21-51); MEAN CORPUSCULAR HEMOGLOBIN 23.8 PG (27.0-31.0); MEAN CORPUSCULAR HGB CONC 30.7 % (33.0-36.5); MEAN CORPUSCULAR VOLUME 77.4 FL (78-98); MONOCYTES # (AUTO) 0.8 X10'3 (0-0.9); MONOCYTES % (AUTO) 7.4 % (2-12); NEUTROPHILS # (AUTO) 8.4 X10'3 (1.8-7.7); NEUTROPHILS % (AUTO) 81.2 % (42-75); PLATELET COUNT 257 X10'3 (140-440); RED CELL DISTRIBUTION WIDTH 20.9 % (11.5-14.5); WHITE BLOOD COUNT 10.3 X10'3 (4.5-11.0)
[2018-03-04] MEDS: CefTRIAXone 2gm/D5W 50ml 50 ML IV SCH (07:23)
[2018-03-04] MEDS: lactobacillus rhamnosus 10,000 MMU CELLS/CAPSULE PO SCH ×2 (07:23→19:42)
[2018-03-04] MEDS: dabigatran 150mg capsule PO SCH ×2 (07:23→19:40)
[2018-03-04] MEDS: metoprolol tartrate 50mg tablet PO SCH ×2 (07:24→19:42)
[2018-03-04] MEDS: pantoprazole 40mg Tablet.DR PO SCH ×2 (07:24→19:42)
[2018-03-04] MEDS: potassium Cl 20 mEq SR tablet PO SCH ×2 (07:24→19:41)
[2018-03-04] MEDS: amiodarone 200mg tablet PO SCH ×2 (07:24→19:41)
[2018-03-04] MEDS: furosemide 40mg tablet PO SCH ×2 (07:24→19:42)
[2018-03-04] MEDS: predniSONE 20 mg tablet PO SCH (07:24)
[2018-03-04 07:39] LABS: ALANINE AMINOTRANSFERASE 47 U/L (12-78); ALBUMIN 2.8 G/DL (3.4-5.0); ALBUMIN/GLOBULIN RATIO 0.8 (1.1-1.5); ALKALINE PHOSPHATASE 59 IU/L (46-116); ANION GAP 6 (8-16); ASPARTATE AMINO TRANSFERASE 50 U/L (10-37); BILIRUBIN,TOTAL 0.4 MG/DL (0.1-1.0); BLOOD UREA NITROGEN 57 MG/DL (7-18); CALCIUM 9.5 MG/DL (8.5-10.1); CHLORIDE 106 MMOL/L (99-107); CREATININE 1.24 MG/DL (0.60-1.10); GLUCOSE 105 MG/DL (70-104); MAGNESIUM 2.4 MG/DL (1.5-2.4); PHOSPHORUS 4.7 MG/DL (2.3-4.5); POTASSIUM 4.6 MMOL/L (3.5-5.1); SODIUM 146 MMOL/L (135-145); TOTAL CARBON DIOXIDE 34.5 MMOL/L (24-32); TOTAL PROTEIN 6.3 G/DL (6.4-8.2); eGFR 58 ML/MIN
[2018-03-04] MEDS: K, MAG and/or Phos replacement - Verify level? MC SCH (08:00)
[2018-03-04 09:00] LABS: ANISOCYTOSIS 3+; HYPOCHROMASIA 1+; PLATELET ESTIMATE NORMAL
[2018-03-04 09:02] LABS: ELLIPTOCYTES FEW; POLYCHROMASIA FEW; SCHISTOCYTES FEW; STOMATOCYTES FEW
[2018-03-04] MEDS ORDERED: diltiazem 5mg/ml 5ml inj. IV ONE (09:45)
[2018-03-04] MEDS: diltiazem-D5W 125mg/125ml 125 ML IV SCH (10:17)
[2018-03-04] MEDS: ondansetron/PF 4mg/2ml inj IV PRN (10:27)
[2018-03-04] MEDS: HYDROcodone/acetaminophen 10/325mg tab PO PRN ×3 (12:48→20:58)
[2018-03-04] MEDS ORDERED: furosemide 10 MG/1 ML 10ml inj IV ONE (14:20)
[2018-03-04] MEDS: digoxin 250mcg/ml 2ml ampule IV SCH (15:58)
[2018-03-04] MEDS: traZODone 150mg tablet PO SCH (19:41)
[2018-03-05] VITALS (17 sets, daily range): BP systolic 134–176; BP diastolic 76–116
[2018-03-05] MEDS: HYDROcodone/acetaminophen 10/325mg tab PO PRN ×6 (00:47→21:17)
[2018-03-05] MEDS: diltiazem-D5W 125mg/125ml 125 ML IV SCH (01:18)
[2018-03-05] MEDS: ipratropium/albuterol 3ml nebule NEB SCH ×4 (05:00→20:22)
[2018-03-05] MEDS: ipratropium/albuterol 3ml nebule NEB PRN (05:36)
[2018-03-05] MEDS: CefTRIAXone 2gm/D5W 50ml 50 ML IV SCH (08:19)
[2018-03-05] MEDS: ondansetron/PF 4mg/2ml inj IV PRN ×2 (08:34→15:43)
[2018-03-05] MEDS ORDERED: diltiazem-D5W 125mg/125ml 125 ML IV SCH (08:35)
[2018-03-05] MEDS: dabigatran 150mg capsule PO SCH ×2 (08:42→22:41)
[2018-03-05] MEDS: pantoprazole 40mg Tablet.DR PO SCH ×2 (08:42→21:15)
[2018-03-05] MEDS: potassium Cl 20 mEq SR tablet PO SCH ×2 (08:43→21:12)
[2018-03-05] MEDS: furosemide 40mg tablet PO SCH ×2 (08:43→21:11)
[2018-03-05] MEDS: predniSONE 20 mg tablet PO SCH (08:43)
[2018-03-05] MEDS: lactobacillus rhamnosus 10,000 MMU CELLS/CAPSULE PO SCH ×2 (08:43→21:11)
[2018-03-05] MEDS: amiodarone 200mg tablet PO SCH ×2 (08:43→21:12)
[2018-03-05] MEDS: metoprolol tartrate 50mg tablet PO SCH ×2 (08:43→21:13)
[2018-03-05] MEDS: diltiazem CD 120mg capsule (once-daily) PO SCH (09:10)
[2018-03-05] MEDS: K, MAG and/or Phos replacement - Verify level? MC SCH (10:00)
[2018-03-05 10:47] LABS: ALANINE AMINOTRANSFERASE 45 U/L (12-78); ALBUMIN 2.8 G/DL (3.4-5.0); ALBUMIN/GLOBULIN RATIO 0.8 (1.1-1.5); ALKALINE PHOSPHATASE 63 IU/L (46-116); ANION GAP 7 (8-16); ASPARTATE AMINO TRANSFERASE 46 U/L (10-37); BILIRUBIN,TOTAL 0.3 MG/DL (0.1-1.0); BLOOD UREA NITROGEN 56 MG/DL (7-18); BUN/CREATININE RATIO 46.7 (5.4-32.0); CALCIUM 9.5 MG/DL (8.5-10.1); CHLORIDE 102 MMOL/L (99-107); GLUCOSE 116 MG/DL (70-104); MAGNESIUM 2.4 MG/DL (1.5-2.4); PHOSPHORUS 3.8 MG/DL (2.3-4.5); SODIUM 144 MMOL/L (135-145); TOTAL CARBON DIOXIDE 35.5 MMOL/L (24-32); TOTAL PROTEIN 6.3 G/DL (6.4-8.2); eGFR 61 ML/MIN
[2018-03-05 11:09] LABS: BASOPHILS # (AUTO) 0.1 X10'3 (0-0.2); BASOPHILS % (AUTO) 0.9 % (0-1); EOSINOPHILS % (AUTO) 0.3 % (0-6); HEMATOCRIT 32.2 % (42.0-52.0); HEMOGLOBIN 9.9 g/dl (14.0-17.9); LYMPHOCYTES # (AUTO) 0.9 X10'3 (1.1-4.8); LYMPHOCYTES % (AUTO) 8.1 % (21-51); MEAN CORPUSCULAR HEMOGLOBIN 23.8 PG (27.0-31.0); MEAN CORPUSCULAR HGB CONC 30.8 % (33.0-36.5); MEAN CORPUSCULAR VOLUME 77.3 FL (78-98); MEAN PLATELET VOLUME 7.7 FL (7.4-10.4); MONOCYTES # (AUTO) 0.8 X10'3 (0-0.9); MONOCYTES % (AUTO) 7.4 % (2-12); NEUTROPHILS # (AUTO) 9.6 X10'3 (1.8-7.7); NEUTROPHILS % (AUTO) 83.3 % (42-75); PLATELET COUNT 249 X10'3 (140-440); RED BLOOD COUNT 4.17 X10'6 (4.70-6.10); WHITE BLOOD COUNT 11.5 X10'3 (4.5-11.0)
[2018-03-05 11:29] LABS: TOTAL CELLS COUNTED 100
[2018-03-05 11:31] LABS: ANISOCYTOSIS 3+; HYPOCHROMASIA 1+; PLATELET ESTIMATE NORMAL; POIKILOCYTOSIS 1+; POLYCHROMASIA 1+
[2018-03-05] MEDS ORDERED: digoxin 250mcg (0.25mg) tablet PO ONE (13:05)
[2018-03-05] MEDS: traZODone 150mg tablet PO SCH (21:14)
[2018-03-06] MEDS: HYDROcodone/acetaminophen 10/325mg tab PO PRN ×5 (01:01→20:55)
[2018-03-06 02:00] VITALS: BP 168/100
[2018-03-06] MEDS: ipratropium/albuterol 3ml nebule NEB SCH ×4 (03:00→21:00)
[2018-03-06] MEDS ORDERED: HYDROcodone/acetaminophen 10/325mg tab PO ONE (03:50)
[2018-03-06] MEDS ORDERED: hydrALAZINE 20mg/ml inj. IV PRN (03:50)
[2018-03-06 06:00] VITALS: BP 139/95
[2018-03-06 06:09] LABS: BASOPHILS % (AUTO) 0 % (0-1); EOSINOPHILS # (AUTO) 0.2 X10'3 (0-0.9); EOSINOPHILS % (AUTO) 1.3 % (0-6); HEMATOCRIT 33.1 % (42.0-52.0); LYMPHOCYTES # (AUTO) 0.8 X10'3 (1.1-4.8); LYMPHOCYTES % (AUTO) 6.8 % (21-51); MEAN CORPUSCULAR HEMOGLOBIN 23.6 PG (27.0-31.0); MEAN CORPUSCULAR HGB CONC 30.2 % (33.0-36.5); MEAN PLATELET VOLUME 7.9 FL (7.4-10.4); MONOCYTES # (AUTO) 0.6 X10'3 (0-0.9); MONOCYTES % (AUTO) 5.8 % (2-12); NEUTROPHILS # (AUTO) 9.6 X10'3 (1.8-7.7); NEUTROPHILS % (AUTO) 86.1 % (42-75); PLATELET COUNT 285 X10'3 (140-440); RED BLOOD COUNT 4.24 X10'6 (4.70-6.10); WHITE BLOOD COUNT 11.2 X10'3 (4.5-11.0)
[2018-03-06 06:27] LABS: ALANINE AMINOTRANSFERASE 46 U/L (12-78); ALBUMIN 2.9 G/DL (3.4-5.0); ALBUMIN/GLOBULIN RATIO 0.9 (1.1-1.5); ALKALINE PHOSPHATASE 62 IU/L (46-116); ANION GAP 7 (8-16); ASPARTATE AMINO TRANSFERASE 47 U/L (10-37); BILIRUBIN,TOTAL 0.4 MG/DL (0.1-1.0); BLOOD UREA NITROGEN 53 MG/DL (7-18); BUN/CREATININE RATIO 43.1 (5.4-32.0); CALCIUM 9.2 MG/DL (8.5-10.1); CHLORIDE 101 MMOL/L (99-107); CREATININE 1.23 MG/DL (0.60-1.10); GLUCOSE 99 MG/DL (70-104); MAGNESIUM 2.3 MG/DL (1.5-2.4); PHOSPHORUS 3.8 MG/DL (2.3-4.5); POTASSIUM 4.4 MMOL/L (3.5-5.1); SODIUM 142 MMOL/L (135-145); TOTAL CARBON DIOXIDE 34.3 MMOL/L (24-32); TOTAL PROTEIN 6.2 G/DL (6.4-8.2); eGFR 59 ML/MIN
[2018-03-06] MEDS: K, MAG and/or Phos replacement - Verify level? MC SCH (08:00)
[2018-03-06] MEDS: potassium Cl 20 mEq SR tablet PO SCH ×2 (08:03→20:53)
[2018-03-06] MEDS: dabigatran 150mg capsule PO SCH ×2 (08:03→20:56)
[2018-03-06] MEDS: diltiazem CD 120mg capsule (once-daily) PO SCH (08:04)
[2018-03-06] MEDS: furosemide 40mg tablet PO SCH ×2 (08:05→20:55)
[2018-03-06] MEDS: amiodarone 200mg tablet PO SCH ×2 (08:05→20:54)
[2018-03-06] MEDS: lactobacillus rhamnosus 10,000 MMU CELLS/CAPSULE PO SCH ×2 (08:05→20:54)
[2018-03-06] MEDS: predniSONE 20 mg tablet PO SCH (08:06)
[2018-03-06] MEDS: metoprolol tartrate 50mg tablet PO SCH ×2 (08:06→21:04)
[2018-03-06] MEDS: digoxin 250mcg (0.25mg) tablet PO SCH (08:06)
[2018-03-06] MEDS: CefTRIAXone 2gm/D5W 50ml 50 ML IV SCH (08:07)
[2018-03-06] MEDS: pantoprazole 40mg Tablet.DR PO SCH ×2 (08:07→20:56)
[2018-03-06 11:00] VITALS: BP_SYST 139; BP_SYST 154; BP_DIAS 86; BP_DIAS 95
[2018-03-06 15:00] VITALS: BP 130/78
[2018-03-06] MEDS: LORazepam 0.5 MG tablet PO PRN (15:19)
[2018-03-06] MEDS: LIDOcaine 5% patch TP SCH (15:20)
[2018-03-06] MEDS: azithromycin 250mg tablet PO SCH (15:20)
[2018-03-06 18:00] VITALS: BP 143/81
[2018-03-06] MEDS: ipratropium/albuterol 3ml nebule NEB PRN (19:23)
[2018-03-06] MEDS: traZODone 150mg tablet PO SCH (20:54)
[2018-03-06 22:00] VITALS: BP 145/81
[2018-03-07] MEDS: LORazepam 0.5 MG tablet PO PRN ×3 (00:24→22:14)
[2018-03-07] MEDS: HYDROcodone/acetaminophen 10/325mg tab PO PRN ×5 (01:30→19:33)
[2018-03-07 02:00] VITALS: BP 155/99
[2018-03-07] MEDS: ipratropium/albuterol 3ml nebule NEB SCH ×4 (02:13→20:48)
[2018-03-07 06:00] VITALS: BP 146/95
[2018-03-07 06:04] LABS: BASOPHILS % (AUTO) 0 % (0-1); EOSINOPHILS % (AUTO) 0.1 % (0-6); HEMATOCRIT 31.1 % (42.0-52.0); HEMOGLOBIN 9.5 g/dl (14.0-17.9); LYMPHOCYTES # (AUTO) 0.9 X10'3 (1.1-4.8); LYMPHOCYTES % (AUTO) 8.6 % (21-51); MEAN CORPUSCULAR HGB CONC 30.7 % (33.0-36.5); MEAN CORPUSCULAR VOLUME 78.2 FL (78-98); MEAN PLATELET VOLUME 7.5 FL (7.4-10.4); MONOCYTES # (AUTO) 0.8 X10'3 (0-0.9); MONOCYTES % (AUTO) 7.9 % (2-12); NEUTROPHILS # (AUTO) 8.9 X10'3 (1.8-7.7); NEUTROPHILS % (AUTO) 83.4 % (42-75); PLATELET COUNT 263 X10'3 (140-440); RED BLOOD COUNT 3.98 X10'6 (4.70-6.10); WHITE BLOOD COUNT 10.7 X10'3 (4.5-11.0)
[2018-03-07 06:11] LABS: ALANINE AMINOTRANSFERASE 40 U/L (12-78); ALBUMIN 2.7 G/DL (3.4-5.0); ALBUMIN/GLOBULIN RATIO 0.9 (1.1-1.5); ALKALINE PHOSPHATASE 55 IU/L (46-116); ANION GAP 7 (8-16); ASPARTATE AMINO TRANSFERASE 37 U/L (10-37); BILIRUBIN,TOTAL 0.4 MG/DL (0.1-1.0); BLOOD UREA NITROGEN 41 MG/DL (7-18); CALCIUM 9.3 MG/DL (8.5-10.1); CHLORIDE 102 MMOL/L (99-107); CREATININE 1.08 MG/DL (0.60-1.10); GLUCOSE 95 MG/DL (70-104); MAGNESIUM 2.2 MG/DL (1.5-2.4); PHOSPHORUS 3.7 MG/DL (2.3-4.5); SODIUM 143 MMOL/L (135-145); TOTAL CARBON DIOXIDE 34.5 MMOL/L (24-32); TOTAL PROTEIN 5.8 G/DL (6.4-8.2); eGFR 68 ML/MIN
[2018-03-07] MEDS: K, MAG and/or Phos replacement - Verify level? MC SCH (08:00)
[2018-03-07] MEDS: dabigatran 150mg capsule PO SCH ×2 (08:00→19:34)
[2018-03-07] MEDS: LIDOcaine 5% patch TP SCH (08:00)
[2018-03-07] MEDS: pantoprazole 40mg Tablet.DR PO SCH ×2 (08:55→19:32)
[2018-03-07] MEDS: predniSONE 20 mg tablet PO SCH (08:55)
[2018-03-07] MEDS: furosemide 40mg tablet PO SCH ×2 (08:55→19:33)
[2018-03-07] MEDS: azithromycin 250mg tablet PO SCH (08:55)
[2018-03-07] MEDS: potassium Cl 20 mEq SR tablet PO SCH ×2 (08:56→19:34)
[2018-03-07] MEDS: lactobacillus rhamnosus 10,000 MMU CELLS/CAPSULE PO SCH ×2 (08:56→19:33)
[2018-03-07] MEDS: diltiazem CD 120mg capsule (once-daily) PO SCH (08:56)
[2018-03-07] MEDS: metoprolol tartrate 50mg tablet PO SCH ×2 (08:57→19:34)
[2018-03-07] MEDS: amiodarone 200mg tablet PO SCH ×2 (08:57→19:34)
[2018-03-07] MEDS: digoxin 250mcg (0.25mg) tablet PO SCH (08:57)
[2018-03-07] MEDS: CefTRIAXone 2gm/D5W 50ml 50 ML IV SCH (08:57)
[2018-03-07 11:00] VITALS: BP 140/91
[2018-03-07] MEDS: ipratropium/albuterol 3ml nebule NEB PRN (11:55)
[2018-03-07 17:31] VITALS: BP 136/87
[2018-03-07 18:00] VITALS: BP 123/80
[2018-03-07] MEDS: traZODone 150mg tablet PO SCH (20:43)
[2018-03-07 22:00] VITALS: BP 136/82
[2018-03-08] MEDS: HYDROcodone/acetaminophen 10/325mg tab PO PRN ×5 (00:09→15:52)
[2018-03-08 02:00] VITALS: BP 139/83
[2018-03-08] MEDS: ipratropium/albuterol 3ml nebule NEB SCH ×3 (02:27→15:00)
[2018-03-08 05:27] LABS: BASOPHILS % (AUTO) 0.1 % (0-1); EOSINOPHILS # (AUTO) 0.2 X10'3 (0-0.9); HEMATOCRIT 31.9 % (42.0-52.0); HEMOGLOBIN 9.8 g/dl (14.0-17.9); LYMPHOCYTES # (AUTO) 1.4 X10'3 (1.1-4.8); LYMPHOCYTES % (AUTO) 14.9 % (21-51); MEAN CORPUSCULAR HEMOGLOBIN 24.1 PG (27.0-31.0); MEAN CORPUSCULAR HGB CONC 30.8 % (33.0-36.5); MEAN CORPUSCULAR VOLUME 78.2 FL (78-98); MEAN PLATELET VOLUME 7.6 FL (7.4-10.4); MONOCYTES # (AUTO) 0.9 X10'3 (0-0.9); MONOCYTES % (AUTO) 10.3 % (2-12); NEUTROPHILS # (AUTO) 6.7 X10'3 (1.8-7.7); NEUTROPHILS % (AUTO) 72.7 % (42-75); PLATELET COUNT 268 X10'3 (140-440); RED BLOOD COUNT 4.07 X10'6 (4.70-6.10); RED CELL DISTRIBUTION WIDTH 20.9 % (11.5-14.5); WHITE BLOOD COUNT 9.2 X10'3 (4.5-11.0)
[2018-03-08 05:41] LABS: ALANINE AMINOTRANSFERASE 40 U/L (12-78); ALBUMIN 2.8 G/DL (3.4-5.0); ALBUMIN/GLOBULIN RATIO 0.8 (1.1-1.5); ALKALINE PHOSPHATASE 58 IU/L (46-116); ANION GAP 7 (8-16); ASPARTATE AMINO TRANSFERASE 30 U/L (10-37); BILIRUBIN,TOTAL 0.4 MG/DL (0.1-1.0); BLOOD UREA NITROGEN 32 MG/DL (7-18); BUN/CREATININE RATIO 32.3 (5.4-32.0); CHLORIDE 102 MMOL/L (99-107); CREATININE 0.99 MG/DL (0.60-1.10); GLUCOSE 88 MG/DL (70-104); MAGNESIUM 1.9 MG/DL (1.5-2.4); POTASSIUM 3.4 MMOL/L (3.5-5.1); SODIUM 143 MMOL/L (135-145); TOTAL CARBON DIOXIDE 34.5 MMOL/L (24-32); TOTAL PROTEIN 6.1 G/DL (6.4-8.2); eGFR 76 ML/MIN
[2018-03-08 06:06] LABS: ANISOCYTOSIS 3+; MICROCYTOSIS 1+; PLATELET ESTIMATE NORMAL
[2018-03-08 06:07] LABS: POLYCHROMASIA FEW
[2018-03-08 06:08] LABS: POIKILOCYTOSIS FEW
[2018-03-08 06:59] VITALS: BP 108/70
[2018-03-08] MEDS: K, MAG and/or Phos replacement - Verify level? MC SCH (07:44)
[2018-03-08] MEDS: LIDOcaine 5% patch TP SCH (07:55)
[2018-03-08] MEDS: CefTRIAXone 2gm/D5W 50ml 50 ML IV SCH (07:55)
[2018-03-08] MEDS: dabigatran 150mg capsule PO SCH (07:56)
[2018-03-08] MEDS: potassium Cl 20 mEq SR tablet PO SCH (07:56)
[2018-03-08] MEDS: metoprolol tartrate 50mg tablet PO SCH (07:56)
[2018-03-08] MEDS: amiodarone 200mg tablet PO SCH (07:56)
[2018-03-08] MEDS: azithromycin 250mg tablet PO SCH (07:57)
[2018-03-08] MEDS: predniSONE 20 mg tablet PO SCH (07:57)
[2018-03-08] MEDS: lactobacillus rhamnosus 10,000 MMU CELLS/CAPSULE PO SCH (07:57)
[2018-03-08] MEDS: diltiazem CD 120mg capsule (once-daily) PO SCH (07:57)
[2018-03-08] MEDS: digoxin 250mcg (0.25mg) tablet PO SCH (07:57)
[2018-03-08] MEDS: furosemide 40mg tablet PO SCH (07:57)
[2018-03-08] MEDS: pantoprazole 40mg Tablet.DR PO SCH (07:57)
[2018-03-08 12:19] VITALS: BP 114/78
[2018-03-08] MEDS: LORazepam 0.5 MG tablet PO PRN (14:05)
== END 2018-03-08 17:30 | DRG 208 ==
LOC: ER 14:24 → ED HOLD 17:26 → CICU 2S 21:40 → PCU 3S 03-05 16:20
PROVIDERS: ADMIT Internal Medicine Critical Care Medicine; ATTEND Internal Medicine Critical Care Medicine
PROC: 5A1945Z Respiratory Ventilation, 24-96 Consecutive Hours (ICD-10-PCS; principal; 2018-02-27)
PROC: 0BH17EZ Insertion of Endotracheal Airway into Trachea, Via Natural or Artificial Opening (ICD-10-PCS; 2018-02-27)
PROC: B32T1ZZ Computerized Tomography (CT Scan) of Left Pulmonary Artery using Low Osmolar Contrast (ICD-10-PCS; 2018-02-27)
PROC: B3201ZZ Computerized Tomography (CT Scan) of Thoracic Aorta using Low Osmolar Contrast (ICD-10-PCS; 2018-02-27)
PROC: B32S1ZZ Computerized Tomography (CT Scan) of Right Pulmonary Artery using Low Osmolar Contrast (ICD-10-PCS; 2018-02-27)
PROC: 30233N1 Transfusion of Nonautologous Red Blood Cells into Peripheral Vein, Percutaneous Approach (ICD-10-PCS; 2018-02-28)
PROC: 5A09357 Assistance with Respiratory Ventilation, Less than 24 Consecutive Hours, Continuous Positive Airway Pressure (ICD-10-PCS; 2018-03-06)
DX: J96.20 Acute and chronic respiratory failure, unspecified whether with hypoxia or hypercapnia (principal); I50.23 Acute on chronic systolic (congestive) heart failure; J44.1 Chronic obstructive pulmonary disease with (acute) exacerbation; Z68.41 Body mass index [BMI] 40.0-44.9, adult; I11.0 Hypertensive heart disease with heart failure; E66.01 Morbid (severe) obesity due to excess calories; F40.240 Claustrophobia; D50.9 Iron deficiency anemia, unspecified; I48.2 Chronic atrial fibrillation; G89.29 Other chronic pain; M54.9 Dorsalgia, unspecified; K21.9 Gastro-esophageal reflux disease without esophagitis; Z56.0 Unemployment, unspecified; Z88.5 Allergy status to narcotic agent; Z79.899 Other long term (current) drug therapy; Z87.891 Personal history of nicotine dependence; Z80.42 Family history of malignant neoplasm of prostate; Z82.3 Family history of stroke; Z83.3 Family history of diabetes mellitus
CPT/HCPCS: 36415; 36600; 71045; 71275; 80053; 80162; 82803; 82948; 83540; 83550; 83735; 83880; 84100; 84484; 85018; 85025; 85610; 86885; 86900; 86901; 86920; 87070; 92616; 93005; 94002; 94003; 94640; 94660; 94667; 94668; 94760; 96374; 96375; 97110; 97116; 97162; 97530; 99291; C9113; G0378; J0282; J0330; J0360; J0461; J0696; J1160; J1650; J1940; J1956; J2060; J2250; J2405; J2704; J2920; J2930; J3010; J3490; J7512; P9016; Q9967